=== PATIENT | female | born 1990 | race Caucasian/White ===

== ENCOUNTER 2016-08-26 16:58 | Emergency (ER) | payer OTHER ==
[2016-08-26 17:20] VITALS: BP 129/74; PULSE 88; RESP 20; TEMP 98.8
--- NOTE | 2016-08-26 17:41 | ED ---
General Adult HPI - General Chief complaint: Fever Stated complaint: Jaw Pain Time Seen by Provider: 08/26/16 17:22 Source: patient, RN notes reviewed, old records reviewed Mode of arrival: ambulatory Limitations: no limitations - History of Present Illness Initial comments: This is a 25-year-old female here with right molar pain. Right lower molar pain. Tooth was extracted secondary to positioning, patient has history of similar issues, patient was currently on treatment of outpatient pain control and antibiotics. Patient will have all medications, will be given pain medication until next week to follow-up with her primary care - Related Data Home Medications Medication Instructions Recorded Confirmed Multivitamin/Iron/Folic Acid 1 tab PO DAILY 02/25/16 08/26/16 [Centrum Complete Multivit Tab] Ibuprofen [Motrin] 800 mg PO Q8HR PRN 08/26/16 08/26/16 Previous Rx's Medication Instructions Recorded Diazepam [Valium] 5 mg PO HS #14 tab 08/26/16 HYDROcodone/APAP 5-325MG [[place] 1 tab PO Q6HR PRN #30 tab 08/26/16 5-325] Naproxen [Naprosyn] 500 mg PO Q12HR #30 tab 08/26/16 Penicillin V Potassium [Pen Vee K] 500 mg PO QID #40 tab 08/26/16 Allergies Allergy/AdvReac Type Severity Reaction Status Date / Time codeine Allergy IRRITABILIT Verified 08/26/16 17:33 Y prochlorperazine edisylate Allergy IRRITABILIT Verified 08/26/16 17:33 [From Compazine] Y prochlorperazine maleate Allergy IRRITABILIT Verified 08/26/16 17:33 [From Compazine] Y tramadol Allergy Unknown Verified 08/26/16 17:33 Review of Systems ROS Statement: Those systems with pertinent positive or pertinent negative responses have been documented in the HPI. ROS Other: All systems not noted in ROS Statement are negative. Past Medical History Additional Past Medical History / Comment(s): 1 seizure in the past History of Any Multi-Drug Resistant Organisms: None Reported Past Surgical History: Appendectomy Past Psychological History: Anxiety Smoking Status: Current some day smoker Past Alcohol Use History: Rare Past Drug Use History: Marijuana, Prescription Drug Abuse General Exam - General Exam Comments Initial Comments: Right rear molar she has extraction, no abscess Limitations: no limitations General appearance: alert, in no apparent distress Head exam: Present: atraumatic, normocephalic, normal inspection Eye exam: Present: normal appearance, PERRL, EOMI. Absent: scleral icterus, conjunctival injection, periorbital swelling ENT exam: Present: normal exam, mucous membranes moist Neck exam: Present: normal inspection. Absent: tenderness, meningismus, lymphadenopathy Respiratory exam: Present: normal lung sounds bilaterally. Absent: respiratory distress, wheezes, rales, rhonchi, stridor Cardiovascular Exam: Present: regular rate, normal rhythm, normal heart sounds. Absent: systolic murmur, diastolic murmur, rubs, gallop, clicks GI/Abdominal exam: Present: soft, normal bowel sounds. Absent: distended, tenderness, guarding, rebound, rigid Extremities exam: Present: normal inspection, full ROM, normal capillary refill. Absent: tenderness, pedal edema, joint swelling, calf tenderness Back exam: Present: normal inspection Neurological exam: Present: alert, oriented X3, CN II-XII intact Psychiatric exam: Present: normal affect, normal mood Skin exam: Present: warm, dry, intact, normal color. Absent: rash Course Vital Signs 08/26/16 17:17 Temperature 98.8 F Pulse Rate 88 Respiratory 20 Rate Blood Pressure 129/74 O2 Sat by Pulse 100 Oximetry Medical Decision Making - Medical Decision Making 25 female year for evaluation of dental caries recent dental extraction and dental pain. Patient will be given pain medication and antibiotics to follow- up with her dentist next week. - Radiology Data Radiology results: image reviewed Disposition Clinical Impression: Dental abscess Disposition: HOME SELF-CARE Instructions: Dental Abscess (ED) Prescriptions: Diazepam [Valium] 5 mg PO HS #14 tab HYDROcodone/APAP 5-325MG [[place] 5-325] 1 tab PO Q6HR PRN #30 tab PRN Reason: Pain Naproxen [Naprosyn] 500 mg PO Q12HR #30 tab Penicillin V Potassium [Pen Vee K] 500 mg PO QID #40 tab Referrals: Vannessa Echavarria MD [Primary Care Provider] - 1-2 days
== END 2016-08-26 17:56 | disposition home or self-care (01) ==
LOC: EC 16:58
DX: K04.7 Periapical abscess without sinus (principal); K02.9 Dental caries, unspecified; K08.409 Partial loss of teeth, unspecified cause, unspecified class; F41.9 Anxiety disorder, unspecified; F17.200 Nicotine dependence, unspecified, uncomplicated; Z88.5 Allergy status to narcotic agent; Z88.8 Allergy status to other drugs, medicaments and biological substances; Z79.899 Other long term (current) drug therapy
CPT/HCPCS: 99283

== ENCOUNTER 2017-07-06 17:32 | Emergency (ER) | payer OTHER ==
[2017-07-06 17:46] VITALS: BP 140/82; PULSE 94; RESP 18; TEMP 98.7
--- NOTE | 2017-07-06 18:20 | XR ---
EXAMINATION TYPE: XR ankle complete LT DATE OF EXAM: 07/06/2017 COMPARISON: NONE HISTORY: Pain TECHNIQUE: 3 views FINDINGS: Ankle mortise is anatomic. I see no fracture nor dislocation. Joint spaces are normal. IMPRESSION: Negative left ankle exam.
--- NOTE | 2017-07-06 18:23 | XR ---
EXAMINATION TYPE: XR hand complete RT DATE OF EXAM: 07/06/2017 COMPARISON: NONE HISTORY: Pain TECHNIQUE: 3 views FINDINGS: I see no fracture nor dislocation. Metacarpals are intact. There are no erosions. There is deformity of distal radius probably from an old injury. IMPRESSION: No acute abnormality of the right hand.
--- NOTE | 2017-07-06 18:45 | ED ---
General Adult HPI - General Chief complaint: Extremity Injury, Upper Stated complaint: Fell on ice/Hand injury Time Seen by Provider: 07/06/17 18:43 Source: patient, RN notes reviewed Mode of arrival: ambulatory Limitations: no limitations - History of Present Illness Initial comments: This is a 26-year-old female who presents to emergency department with chief complaint of left ankle and right hand injuries. Patient states that 2 weeks ago she slipped on a patch of ice and twisted her left ankle. Since that time her ankle has had swelling at the lateral aspect and pain that radiates up the leg. Patient states that at approximately 3 PM this afternoon she slipped on another patch of ice, tried to catch herself and hit the back of her right hand on a side rail. She states that she is normally able to handle pain well, but her hand is in extreme pain. Denies any other injuries. Denies fever, chills, chest pain, shortness of breath, abdominal pain, nausea or vomiting, constipation or diarrhea, dysuria or hematuria, numbness or tingling, headache or vision changes. - Related Data Home Medications Medication Instructions Recorded Confirmed Multivitamin/Iron/Folic Acid 1 tab PO DAILY 02/25/16 08/26/16 [Centrum Complete Multivit Tab] Ibuprofen [Motrin] 800 mg PO Q8HR PRN 08/26/16 08/26/16 Previous Rx's Medication Instructions Recorded Diazepam [Valium] 5 mg PO HS #14 tab 08/26/16 HYDROcodone/APAP 5-325MG [[place] 1 tab PO Q6HR PRN #30 tab 08/26/16 5-325] Naproxen [Naprosyn] 500 mg PO Q12HR #30 tab 08/26/16 Penicillin V Potassium [Pen Vee K] 500 mg PO QID #40 tab 08/26/16 Allergies Allergy/AdvReac Type Severity Reaction Status Date / Time codeine Allergy IRRITABILIT Verified 07/06/17 17:46 Y prochlorperazine edisylate Allergy IRRITABILIT Verified 07/06/17 17:46 [From Compazine] Y prochlorperazine maleate Allergy IRRITABILIT Verified 07/06/17 17:46 [From Compazine] Y tramadol Allergy Unknown Verified 07/06/17 17:46 Review of Systems ROS Statement: Those systems with pertinent positive or pertinent negative responses have been documented in the HPI. ROS Other: All systems not noted in ROS Statement are negative. Past Medical History Additional Past Medical History / Comment(s): 2 seizure in the past History of Any Multi-Drug Resistant Organisms: None Reported Past Surgical History: Appendectomy Past Psychological History: Anxiety Smoking Status: Current some day smoker Past Alcohol Use History: Rare Past Drug Use History: None Reported General Exam - General Exam Comments Initial Comments: General: Awake and alert, well-developed; in no apparent distress. HEENT: Head atraumatic, normocephalic. Pupils are equal, round and reactive to light. Extraocular movements intact. Neck: Supple. Normal ROM. Cardiovascular: Regular rate and rhythm. No murmurs, rubs or gallops. Chest symmetrical. Respiratory: Lungs clear to auscultation bilaterally. No wheezes, rales or rhonchi. Normal respiratory effort with no use of accessory muscles. Musculoskeletal: Normal range of motion of bilateral upper and lower extremities. There is some soft tissue swelling and bruising noted at lateral aspect of left ankle. There is soft tissue swelling and bruising surrounding the second and third MCP joints of right hand. Sensation is intact. Pedal and radial pulses are 2+ equal and palpable bilaterally. Skin: [place], warm and dry without rashes or lesions. Neurological: Alert and oriented x3. CN II-XII grossly intact. Speech is fluent and answers are appropriate. No focal neuro deficits. Psychiatric: Normal mood and affect. No overt signs of depression or anxiety noted. Limitations: no limitations Course Vital Signs 07/06/17 17:42 Temperature 98.7 F Pulse Rate 94 Respiratory 18 Rate Blood Pressure 140/82 O2 Sat by Pulse 99 Oximetry Medical Decision Making - Medical Decision Making This is a 26-year-old female who presented to the emergency department for evaluation of right hand and left ankle injuries. X-rays revealed no acute fractures or dislocations. Patient is able to bear weight and ambulating normally. Denies snuffbox tenderness. Scotty bandages were placed and patient tolerated well. She will be discharged home with recommendation to use ice and anti-inflammatories as needed. Patient is recommended to follow-up with her primary care provider. She is in agreement with plan and voices understanding. All questions were answered. - Radiology Data Radiology results: report reviewed Right hand x-ray findings: His no fracture or dislocation. Metacarpals are intact. There are no erosions. There is deformity of distal radius probably from an old injury. Impression: No acute abnormalities of the right hand. Left ankle x-ray findings: Ankle mortise is anatomic. I see no fracture nor dislocation. Joint spaces are normal. Impression: Negative left ankle exam Disposition Clinical Impression: Contusion of right hand, Left ankle sprain Disposition: HOME SELF-CARE Condition: Good Instructions: Contusion in Adults (ED), Ankle Sprain (ED) Additional Instructions: Please ice affected areas. Please use Tylenol or Motrin as needed for pain and inflammation. Please follow up with primary care provider within 1-2 days. Return to emergency department if symptoms should worsen or any concerns arise. Referrals: Vannessa Echavarria MD [Primary Care Provider] - 1-2 days Time of Disposition: 19:10
== END 2017-07-06 19:19 | disposition home or self-care (01) ==
LOC: EC 17:32
DX: S93.402A Sprain of unspecified ligament of left ankle, initial encounter (principal); S60.221A Contusion of right hand, initial encounter; F17.200 Nicotine dependence, unspecified, uncomplicated; Z79.899 Other long term (current) drug therapy; Z88.5 Allergy status to narcotic agent; Z88.8 Allergy status to other drugs, medicaments and biological substances; W00.0XXA Fall on same level due to ice and snow, initial encounter; Y92.89 Other specified places as the place of occurrence of the external cause
CPT/HCPCS: 99283

== ENCOUNTER 2017-12-30 19:27 | Emergency (ER) | payer OTHER ==
[2017-12-30 19:39] VITALS: BP 126/76; PULSE 89; RESP 18; TEMP 98.1
[2017-12-30] MEDS ORDERED: HYDROcodone/APAP 5-325MG 1 EACH TAB PO STA (19:54)
[2017-12-30] MEDS ORDERED: CYCLOBENZAPRINE 10MG STARTER 3 TAB BTL PO STA (19:54)
--- NOTE | 2017-12-30 19:58 | ED ---
Back Pain HPI - General Chief Complaint: Back Pain/Injury Stated Complaint: Back pain Time Seen by Provider: 12/30/17 19:46 Source: patient, RN notes reviewed Limitations: no limitations - History of Present Illness Initial Comments: 27-year-old female presents emergency Department chief complaint of low back pain. Patient states she injured it while lifting a box of the carotids help. She states [place] and after doing that she started having a sudden onset of pain. She states it hurts to twist and bend. She denies any bowel, bladder incontinence or retention. She denies any saddle anesthesias or lower extremity paresthesias. She does have some pain that radiates to her left leg. Patient states that she's had something like this in the past and she went to the chiropractor which helped. Patient denies abdominal pain including nausea vomiting diarrhea constipation or dysuria no hematuria denies any chance . - Related Data Home Medications Medication Instructions Recorded Confirmed Multivitamin/Iron/Folic Acid 1 tab PO DAILY 02/25/16 08/26/16 [Centrum Complete Multivit Tab] Ibuprofen [Motrin] 800 mg PO Q8HR PRN 08/26/16 08/26/16 Previous Rx's Medication Instructions Recorded Diazepam [Valium] 5 mg PO HS #14 tab 08/26/16 HYDROcodone/APAP 5-325MG [[place] 1 tab PO Q6HR PRN #30 tab 08/26/16 5-325] Naproxen [Naprosyn] 500 mg PO Q12HR #30 tab 08/26/16 Penicillin V Potassium [Pen Vee K] 500 mg PO QID #40 tab 08/26/16 Cyclobenzaprine [Flexeril] 10 mg PO TID PRN #15 tab 12/30/17 Allergies Allergy/AdvReac Type Severity Reaction Status Date / Time codeine Allergy IRRITABILIT Verified 12/30/17 19:39 Y prochlorperazine edisylate Allergy IRRITABILIT Verified 12/30/17 19:39 [From Compazine] Y prochlorperazine maleate Allergy IRRITABILIT Verified 12/30/17 19:39 [From Compazine] Y tramadol Allergy Unknown Verified 12/30/17 19:39 Review of Systems ROS Statement: Those systems with pertinent positive or pertinent negative responses have been documented in the HPI. ROS Other: All systems not noted in ROS Statement are negative. Past Medical History Past Medical History: Seizure Disorder Additional Past Medical History / Comment(s): 2 seizure in the past History of Any Multi-Drug Resistant Organisms: None Reported Past Surgical History: Appendectomy Past Psychological History: Anxiety Smoking Status: Current some day smoker Past Alcohol Use History: Rare Past Drug Use History: None Reported General Exam Limitations: no limitations General appearance: alert, in no apparent distress Respiratory exam: Present: normal lung sounds bilaterally. Absent: respiratory distress, wheezes, rales, rhonchi, stridor Cardiovascular Exam: Present: regular rate, normal rhythm, normal heart sounds. Absent: systolic murmur, diastolic murmur, rubs, gallop, clicks GI/Abdominal exam: Present: soft, normal bowel sounds. Absent: distended, tenderness, guarding, rebound, rigid Extremities exam: Present: normal inspection, full ROM, normal capillary refill. Absent: tenderness, pedal edema, joint swelling, calf tenderness Back exam: Present: normal inspection, full ROM (With moderate discomfort), tenderness (Mild to moderate lumbar), muscle spasm, paraspinal tenderness, other (Pain with right straight leg raise). Absent: vertebral tenderness Neurological exam: Present: alert, oriented X3, CN II-XII intact Course Vital Signs 12/30/17 19:36 Temperature 98.1 F Pulse Rate 89 Respiratory 18 Rate Blood Pressure 126/76 O2 Sat by Pulse 96 Oximetry Medical Decision Making - Medical Decision Making 27-year-old female presented emergency from for low back pain. Patient is a lumbar strain she has no red flag symptoms and no dramatic injuries. Patient will be provided muscle relaxers she is advised to apply heat and ice and continue ibuprofen as directed. Disposition Clinical Impression: Strain of lumbar region Disposition: HOME SELF-CARE Condition: Stable Instructions: Acute Low Back Pain (ED) Additional Instructions: Please return to the Emergency Department if symptoms worsen or any other concerns. Prescriptions: Cyclobenzaprine [Flexeril] 10 mg PO TID PRN #15 tab PRN Reason: Muscle Spasm Is patient prescribed a controlled substance at d/c from ED?: No Referrals: Vannessa Echavarria MD [Primary Care Provider] - 1-2 days Time of Disposition: 19:58
== END 2017-12-30 20:05 | disposition home or self-care (01) ==
LOC: EC 19:27
DX: S39.012A Strain of muscle, fascia and tendon of lower back, initial encounter (principal); F17.200 Nicotine dependence, unspecified, uncomplicated; Z88.5 Allergy status to narcotic agent; Z88.8 Allergy status to other drugs, medicaments and biological substances; Z88.6 Allergy status to analgesic agent; X50.0XXA Overexertion from strenuous movement or load, initial encounter
CPT/HCPCS: 99283

== ENCOUNTER 2018-01-18 23:32 | Inpatient (IN) | payer OTHER ==
[2018-01-19] MEDS ORDERED: SODIUM CHLORIDE 0.9% 1,000 ML IV ONE (01:52)
[2018-01-19] MEDS ORDERED: KETOROLAC 30 MG/ML 1 ML VIAL IVP STA (01:52)
[2018-01-19 02:18] LABS: Basophils # (A) 0.1 k/uL (0-0.2); Basophils % (A) 0 %; Eosinophils # (A) 0.4 k/uL (0-0.7); Eosinophils % (A) 3 %; HCT 42.1 % (34.0-46.0); HGB 13.6 gm/dL (11.4-16.0); Lymphocytes # (A) 1.8 k/uL (1.0-4.8); Lymphocytes % (A) 16 %; MCH 31.3 pg (25.0-35.0); MCHC 32.3 g/dL (31.0-37.0); MCV 96.9 fL (80.0-100.0); Mean Platelet Volume 8.1; Monocytes # (A) 0.7 k/uL (0-1.0); Monocytes % (A) 6 %; Neutrophils # (A) 8.1 k/uL (1.3-7.7); Neutrophils % (A) 72 %; Platelet Count 294 k/uL (150-450); RBC 4.35 m/uL (3.80-5.40); WBC 11.2 k/uL (3.8-10.6)
[2018-01-19 02:22] LABS: ALT 22 U/L (9-52); AST 17 U/L (14-36); Albumin 4.4 g/dL (3.5-5.0); Alkaline Phosphatase 69 U/L (38-126); Anion Gap 9 mmol/L; Blood Urea Nitrogen 17 mg/dL (7-17); Calcium 9.1 mg/dL (8.4-10.2); Carbon Dioxide 24 mmol/L (22-30); Chloride 107 mmol/L (98-107); Glucose 113 mg/dL (74-99); Potassium 4.1 mmol/L (3.5-5.1); Sodium 140 mmol/L (137-145); Total Bilirubin 0.4 mg/dL (0.2-1.3)
[2018-01-19] MEDS ORDERED: ACETAMINOPHEN TAB 325 MG TAB PO PRN (02:42)
[2018-01-19] MEDS ORDERED: IBUPROFEN 400 MG TAB PO PRN (02:42)
[2018-01-19] MEDS ORDERED: NALOXONE 0.4 MG/ML 1 ML VIAL IV PRN (02:42)
--- NOTE | 2018-01-19 02:42 | ED ---
Skin/Abscess/FB HPI - General Chief complaint: Skin/Abscess/Foreign Body Stated complaint: Cat Bite x3 days, pain, confusion, discharge Time Seen by Provider: 01/19/18 01:00 Source: patient Mode of arrival: ambulatory Limitations: no limitations - History of Present Illness Initial comments: 27-year-old female patient presents to the emergency department today for evaluation of infection to the right hand. Patient states 3 days ago she was bit by a cat on her right middle and right fourth digit. Patient states that she was seen and evaluated at urgent care and given Augmentin. Patient states she has been taking the medication for the last 2 days however the pain in her fingers is worsening and she is to feel some tingling at the distal tips of the third and fourth digits on the right hand. Patient states she is now having pain radiating from the hand up to her elbow into her shoulder. Patient states she has had fever for 100.8F at home. States that she has taken Advil for this and it did help with her chills. Patient states that she is also just felt very fatigued and "out of it". Patient denies any recent rash, shortness breath, chest pain, abdominal pain, nausea, vomiting, diarrhea, constipation, back pain, numbness, tingling, dizziness, weakness, hematuria, dysuria, urinary urgency, urinary frequency, headache, visual changes, or any other complaints. - Related Data Home Medications Medication Instructions Recorded Confirmed Multivitamin/Iron/Folic Acid 1 tab PO DAILY 02/25/16 08/26/16 [Centrum Complete Multivit Tab] Ibuprofen [Motrin] 800 mg PO Q8HR PRN 08/26/16 08/26/16 Previous Rx's Medication Instructions Recorded Diazepam [Valium] 5 mg PO HS #14 tab 08/26/16 HYDROcodone/APAP 5-325MG [[place] 1 tab PO Q6HR PRN #30 tab 08/26/16 5-325] Naproxen [Naprosyn] 500 mg PO Q12HR #30 tab 08/26/16 Penicillin V Potassium [Pen Vee K] 500 mg PO QID #40 tab 08/26/16 Cyclobenzaprine [Flexeril] 10 mg PO TID PRN #15 tab 12/30/17 Allergies Allergy/AdvReac Type Severity Reaction Status Date / Time codeine Allergy IRRITABILIT Verified 12/30/17 19:39 Y prochlorperazine edisylate Allergy IRRITABILIT Verified 12/30/17 19:39 [From Compazine] Y prochlorperazine maleate Allergy IRRITABILIT Verified 12/30/17 19:39 [From Compazine] Y tramadol Allergy Unknown Verified 12/30/17 19:39 Review of Systems ROS Statement: Those systems with pertinent positive or pertinent negative responses have been documented in the HPI. ROS Other: All systems not noted in ROS Statement are negative. Past Medical History Past Medical History: Seizure Disorder Additional Past Medical History / Comment(s): 2 seizure in the past History of Any Multi-Drug Resistant Organisms: None Reported Past Surgical History: Appendectomy Past Psychological History: Anxiety Smoking Status: Current some day smoker Past Alcohol Use History: Rare Past Drug Use History: Marijuana General Exam Limitations: no limitations General appearance: alert, in no apparent distress, other (This is a well- developed, well-nourished adult female patient in no acute distress. Vital signs upon presentation are temperature 98.3F, pulse 105, respirations 18, blood pressure 136/86, pulse ox 99% on room air.) Eye exam: Present: normal appearance, PERRL, EOMI. Absent: scleral icterus, conjunctival injection, periorbital swelling ENT exam: Present: normal exam, normal oropharynx, mucous membranes moist Respiratory exam: Present: normal lung sounds bilaterally. Absent: respiratory distress, wheezes, rales, rhonchi, stridor Cardiovascular Exam: Present: regular rate, normal rhythm, normal heart sounds. Absent: systolic murmur, diastolic murmur, rubs, gallop, clicks Extremities exam: Present: full ROM, tenderness (Over the right third and fourth digit on the right hand.), normal capillary refill, other (Patient has swelling to the proximal aspects of the right middle and right ring finger. There is some erythema streaking from the right ring finger up the dorsal aspect of the hand. Radial pulses 2+ and equal bilaterally. [place] skin is pink, warm, and dry. Cap refills less than 3 seconds.). Absent: normal inspection, pedal edema, joint swelling, calf tenderness Neurological exam: Present: alert, oriented X3, CN II-XII intact Psychiatric exam: Present: normal affect, normal mood Skin exam: Present: warm, dry, intact, normal color. Absent: rash Course Vital Signs 01/18/18 23:35 Temperature 98.3 F Pulse Rate 105 H Respiratory 18 Rate Blood Pressure 136/86 O2 Sat by Pulse 99 Oximetry Medical Decision Making - Medical Decision Making 27-year-old female patient presented to the emergency department today for evaluation of a cat bite to the right hand. Patient was taking Augmentin for 2 days however has increased swelling and pain to the right hand radiating up the arm. Labs reviewed and did show white blood cell count of 11.2. Lactic acid was negative. Patient did report fevers at home. Patient will be admitted to the hospital for further evaluation with surgical consult. She'll be given Unasyn 4 times daily. She is aware of and agrees with plan. - Lab Data Result diagrams: 01/19/18 02:00 01/19/18 02:00 Lab Results 01/19/18 01/19/18 01/19/18 Range/Units 02:00 02:00 02:00 WBC 11.2 H (3.8-10.6) k/uL RBC 4.35 (3.80-5.40) m/uL Hgb 13.6 (11.4-16.0) gm/dL Hct 42.1 (34.0-46.0) % MCV 96.9 (80.0-100.0) fL MCH 31.3 (25.0-35.0) pg MCHC 32.3 (31.0-37.0) g/dL RDW 13.0 (11.5-15.5) % Plt Count 294 (150-450) k/uL Neutrophils % 72 % Lymphocytes % 16 % Monocytes % 6 % Eosinophils % 3 % Basophils % 0 % Neutrophils # 8.1 H (1.3-7.7) k/uL Lymphocytes # 1.8 (1.0-4.8) k/uL Monocytes # 0.7 (0-1.0) k/uL Eosinophils # 0.4 (0-0.7) k/uL Basophils # 0.1 (0-0.2) k/uL Sodium 140 (137-145) mmol/L Potassium 4.1 (3.5-5.1) mmol/L Chloride 107 (98-107) mmol/L Carbon Dioxide 24 (22-30) mmol/L Anion Gap 9 mmol/L BUN 17 (7-17) mg/dL Creatinine 0.70 (0.52-1.04) mg/dL Est GFR (CKD-EPI)AfAm >90 (>60 ml/min/1.73 sqM) Est GFR (CKD-EPI)NonAf >90 (>60 ml/min/1.73 sqM) Glucose 113 H (74-99) mg/dL Plasma Lactic Acid Ike 0.9 (0.7-2.0) mmol/L Calcium 9.1 (8.4-10.2) mg/dL Total Bilirubin 0.4 (0.2-1.3) mg/dL AST 17 (14-36) U/L ALT 22 (9-52) U/L Alkaline Phosphatase 69 (38-126) U/L Total Protein 7.0 (6.3-8.2) g/dL Albumin 4.4 (3.5-5.0) g/dL Disposition Clinical Impression: Cat bite involving extremity, Lymphangitis Disposition: ADMITTED IP TO THIS [facility] Condition: Serious Referrals: Vannessa Echavarria MD [Primary Care Provider] - 1-2 days Decision to Admit Reason: Admit from EC Decision Date: 01/19/18 Decision Time: 02:41
[2018-01-19] MEDS ORDERED: AMPICILLIN-SULBACTAM 3 GM in SODIUM CHLORIDE 0.9% 100 ML IVPB STA (02:44)
[2018-01-19] MEDS: SODIUM CHLORIDE 0.9% 1,000 ML IV SCH (03:08)
[2018-01-19] MEDS: AMPICILLIN-SULBACTAM 3 GM in SODIUM CHLORIDE 0.9% 100 ML IVPB SCH ×3 (08:10→21:02)
--- NOTE | 2018-01-19 10:35 | P.CONS ---
History of Present Illness - Reason for Consult Consult date: 01/19/18 Antibiotic recommendations/ cat bite - History of Present Illness This is a 27-year-old female but gives history of her own cat biting her on the right third and fourth fingers. She states she went to her primary care physician who then sent her to the health department. The health Department then sent her to [facility] ER where her wound was cleaned, she received a tetanus shot and patient was started on Augmentin. Patient was then traveling with her down to [place] and back and has had continued fever, chills, nausea. She complains of numbness to her third and fourth fingers from the proximal phalanx to the tips. The pain has been worsening for her. She came into [facility] emergency last evening and was found to be afebrile, white count is 11.2, glucose 113. Patient denies any history of diabetes. Patient was started on Unasyn and admitted to the pediatric unit. There is a consult in place for orthopedic evaluation. Patient states that she was told by the ER last night that she had some streaks going up her hand and into her arm. Review of Systems All systems: negative Constitutional: Reports chills, Reports fever, Denies anorexia, Denies poor appetite Eyes: denies blurred vision, denies pain Ears, nose, mouth and throat: Denies dental pain, Denies headache, Denies mouth pain, Denies sore throat Cardiovascular: Reports lightheadedness, Denies chest pain, Denies dyspnea on exertion, Denies leg edema, Denies shortness of breath, Denies syncope Respiratory: Reports cough, Denies cough with sputum, Denies dyspnea, Denies excessive sputum, Denies hemoptysis, Denies home oxygen, Denies wheezing Gastrointestinal: Denies abdominal pain, Denies diarrhea, Denies nausea, Denies vomiting Genitourinary: Denies dysuria, Denies hematuria Musculoskeletal: Denies myalgias Integumentary: Reports wounds, Denies pruritus, Denies rash Neurological: Denies numbness, Denies weakness Psychiatric: Denies anxiety, Denies depression Endocrine: Denies fatigue, Denies weight change Past Medical History Past Medical History: Seizure Disorder Additional Past Medical History / Comment(s): Patient has been seizure free for 3 years. History of Any Multi-Drug Resistant Organisms: None Reported Past Surgical History: Appendectomy Past Anesthesia/Blood Transfusion Reactions: No Reported Reaction Past Psychological History: Anxiety Smoking Status: Current some day smoker Past Alcohol Use History: Rare Additional Past Alcohol Use History / Comment(s): is a smoker of less than a half a pack per day for 12 years. She does smoke marijuana occasionally. She drinks alcohol rarely. She lives at home with her fianc and children. Past Drug Use History: Marijuana Additional Drug Use History / Comment(s): Smokes marijuana occasionally. - Past Family History Brother(s) Additional Family Medical History / Comment(s): Cystic fibrosis Medications and Allergies Home Medications Medication Instructions Recorded Confirmed Type Multivitamin/Iron/Folic Acid 1 tab PO DAILY 02/25/16 01/19/18 History [Centrum Complete Multivit Tab] Ibuprofen [Motrin] 800 mg PO Q8HR PRN 08/26/16 01/19/18 History Amoxic-Pot Clav 500-125 mg 500 tab PO QID 01/19/18 01/19/18 History [Augmentin 500-125 mg] Allergies Allergy/AdvReac Type Severity Reaction Status Date / Time codeine Allergy Rash/Hives Verified 01/19/18 04:26 tramadol AdvReac Severe Unknown Verified 01/19/18 04:26 prochlorperazine edisylate AdvReac Intermediate IRRITABILIT Verified 01/19/18 04 :26 [From Compazine] Y prochlorperazine maleate AdvReac Intermediate IRRITABILIT Verified 01/19/18 04: 26 [From Compazine] Y Physical Exam Vitals: Vital Signs Temp Pulse Pulse Resp BP BP Pulse Ox 01/19/18 08:12 97.5 F L 71 18 104/57 99 01/19/18 04:01 97.6 F 69 18 112/73 99 01/19/18 04:00 97.7 F 68 18 108/68 100 01/18/18 23:35 98.3 F 105 H 18 136/86 99 Intake and Output 01/18/18 01/19/18 01/19/18 22:59 06:59 14:59 Intake Total 580 Balance 580 Intake: Oral 580 Other: Weight 54.885 kg Gen: This is a 27-year-old female. She is sitting up in bed and eating in [place] which appears to be in no acute distress. HEENT: Head is atraumatic, normocephalic. Pupils equal, round. Sclerae is anicteric. Conjunctiva pink. Mucous members of the mouth are moist. NECK: Supple. No JVD. No lymphadenopathy. No thyromegaly. LUNGS: Clear to auscultation. No wheezes or rhonchi. No intercostal retractions. HEART: Regular rate and rhythm. No murmur. ABDOMEN: Soft. Bowel sounds are present. No masses. No tenderness. EXTREMITIES: No pedal edema. No calf tenderness. To the right hand, patient has puncture wounds to the third proximal phalanx and fourth proximal phalanx. There is mild edema and erythema. No redness or going up into the arm. Patient does complain of tingling from the proximal phalanx to her fingertips on the third and fourth digits. NEUROLOGICAL: Patient is awake, alert and oriented x3. Cranial nerves 2 through 12 are grossly intact. Results Results: Laboratory Results WBC 11.2 k/uL (3.8-10.6) H 01/19/18 02:00 RBC 4.35 m/uL (3.80-5.40) 01/19/18 02:00 Hgb 13.6 gm/dL (11.4-16.0) 01/19/18 02:00 Hct 42.1 % (34.0-46.0) 01/19/18 02:00 MCV 96.9 fL (80.0-100.0) 01/19/18 02:00 MCH 31.3 pg (25.0-35.0) 01/19/18 02:00 MCHC 32.3 g/dL (31.0-37.0) 01/19/18 02:00 RDW 13.0 % (11.5-15.5) 01/19/18 02:00 Plt Count 294 k/uL (150-450) 01/19/18 02:00 Neutrophils % 72 % 01/19/18 02:00 Lymphocytes % 16 % 01/19/18 02:00 Monocytes % 6 % 01/19/18 02:00 Eosinophils % 3 % 01/19/18 02:00 Basophils % 0 % 01/19/18 02:00 Neutrophils # 8.1 k/uL (1.3-7.7) H 01/19/18 02:00 Lymphocytes # 1.8 k/uL (1.0-4.8) 01/19/18 02:00 Monocytes # 0.7 k/uL (0-1.0) 01/19/18 02:00 Eosinophils # 0.4 k/uL (0-0.7) 01/19/18 02:00 Basophils # 0.1 k/uL (0-0.2) 01/19/18 02:00 Sodium 140 mmol/L (137-145) 01/19/18 02:00 Potassium 4.1 mmol/L (3.5-5.1) 01/19/18 02:00 Chloride 107 mmol/L (98-107) 01/19/18 02:00 Carbon Dioxide 24 mmol/L (22-30) 01/19/18 02:00 Anion Gap 9 mmol/L 01/19/18 02:00 BUN 17 mg/dL (7-17) 01/19/18 02:00 Creatinine 0.70 mg/dL (0.52-1.04) 01/19/18 02:00 Est GFR (CKD-EPI)AfAm >90 (>60 ml/min/1.73 sqM) 01/19/18 02:00 Est GFR (CKD-EPI)NonAf >90 (>60 ml/min/1.73 sqM) 01/19/18 02:00 Glucose 113 mg/dL (74-99) H 01/19/18 02:00 Plasma Lactic Acid Ike 0.9 mmol/L (0.7-2.0) 01/19/18 02:00 Calcium 9.1 mg/dL (8.4-10.2) 01/19/18 02:00 Total Bilirubin 0.4 mg/dL (0.2-1.3) 01/19/18 02:00 AST 17 U/L (14-36) 01/19/18 02:00 ALT 22 U/L (9-52) 01/19/18 02:00 Alkaline Phosphatase 69 U/L (38-126) 01/19/18 02:00 Total Protein 7.0 g/dL (6.3-8.2) 01/19/18 02:00 Albumin 4.4 g/dL (3.5-5.0) 01/19/18 02:00 CBC & Chem 7: 01/19/18 02:00 01/19/18 02:00 Labs: Abnormal Lab Results - Last 24 Hours (Table) 01/19/18 01/19/18 Range/Units 02:00 02:00 WBC 11.2 H (3.8-10.6) k/uL Neutrophils # 8.1 H (1.3-7.7) k/uL Glucose 113 H (74-99) mg/dL Assessment and Plan Plan: This is a 27-year-old female who presented to the hospital with Bite failed outpatient treatment with Augmentin. Patient is currently on Unasyn. Local wound care will be addressed, elevate and on 2 pillows. Bone scan will be ordered. Toradol IV [id number] for the next 2 days. Patient's tetanus status was updated on the . Hemoglobin A1c ordered. Continue supportive care. Further recommendations as patient progresses. The above dictated assessment and findings were discussed with Dr. Sandoval. The impression and plan of care have been directed as dictated. Millicent Diaz nurse practitioner acting as scribe for Dr. Sandoval.
--- NOTE | 2018-01-19 11:24 | P.CNOR ---
History of Present Illness - [facility] Consult date: 01/19/18 Consult reason: other (Cat bite right hand) History of present illness: The patient is a 27-year-old female who presented to the emergency department after sustaining a cat bite 3 days ago. The patient states that it was her own cat and her daughter was trying to introduce th cat to a dog and the cat was frightened, it bit her and ran away. She was initially seen at her primary care physician who sent her to the health department. The health department then sent her to the ER at [facility] where the wound was clean and she received Augmentin and a tetanus shot. The patient states that she then traveled down to [place] with her family and while driving back she developed a fever and chills. She came immediately to the emergency department at [facility] upon arrival back into [facility]. She states that the ER said that she had some red streaking up her arm. She was afebrile while in the emergency department. She was started on Unasyn and admitted to the pediatric unit for IV antibiotics and orthopedic evaluation. Today, the patient states that she has not had a fever since admission. She states that her hand is feeling better but she is having pain and numbness to her middle and ring fingers on the right hand. Review of Systems Constitutional: Reports chills, Reports fever Cardiovascular: Denies chest pain, Denies shortness of breath Respiratory: Denies cough Gastrointestinal: Denies diarrhea, Denies nausea, Denies vomiting Musculoskeletal: right: hand pain, hand stiffness, hand swelling Past Medical History Past Medical History: Seizure Disorder Additional Past Medical History / Comment(s): Patient has been seizure free for 3 years. History of Any Multi-Drug Resistant Organisms: None Reported Past Surgical History: Appendectomy Past Anesthesia/Blood Transfusion Reactions: No Reported Reaction Past Psychological History: Anxiety Smoking Status: Current some day smoker Past Alcohol Use History: Rare Additional Past Alcohol Use History / Comment(s): is a smoker of less than a half a pack per day for 12 years. She does smoke marijuana occasionally. She drinks alcohol rarely. She lives at home with her fianc and children. Past Drug Use History: Marijuana Additional Drug Use History / Comment(s): Smokes marijuana occasionally. - Past Family History Brother(s) Additional Family Medical History / Comment(s): Cystic fibrosis Medications and Allergies Home Medications Medication Instructions Recorded Confirmed Type Multivitamin/Iron/Folic Acid 1 tab PO DAILY 02/25/16 01/19/18 History [Centrum Complete Multivit Tab] Ibuprofen [Motrin] 800 mg PO Q8HR PRN 08/26/16 01/19/18 History Amoxic-Pot Clav 500-125 mg 500 tab PO QID 01/19/18 01/19/18 History [Augmentin 500-125 mg] Allergies Allergy/AdvReac Type Severity Reaction Status Date / Time codeine Allergy Rash/Hives Verified 01/19/18 04:26 tramadol AdvReac Severe Unknown Verified 01/19/18 04:26 prochlorperazine edisylate AdvReac Intermediate IRRITABILIT Verified 01/19/18 04 :26 [From Compazine] Y prochlorperazine maleate AdvReac Intermediate IRRITABILIT Verified 01/19/18 04: 26 [From Compazine] Y Physical Examination The patient is a 27-year-old female who is in no acute distress. She is alert and oriented 3. Exam of the right hand reveals 2 puncture wounds on the ulnar aspects of the proximal phalanx level of the right middle and ring fingers. The puncture sites appear to be healing with no evidence of abscess or obvious infection at this time. The redness has seemed to improve since admission. There is no proximal red streaking or swelling into the hand. There is mild swelling to the ring and middle fingers. Patient is unable to make a fist due to pain and guarding. There is numbness to the fingertips of the right middle and ring fingers with some tingling. Neurological and circulatory status is intact to the hand. Results - Labs Labs: Abnormal Lab Results - Last 24 Hours (Table) 01/19/18 01/19/18 Range/Units 02:00 02:00 WBC 11.2 H (3.8-10.6) k/uL Neutrophils # 8.1 H (1.3-7.7) k/uL Glucose 113 H (74-99) mg/dL H & H 01/19/18 Range/Units 02:00 Hgb 13.6 (11.4-16.0) gm/dL Hct 42.1 (34.0-46.0) % Result Diagrams: 01/19/18 02:00 01/19/18 02:00 - Diagnostic results Wrist/Hand x-ray: other (No x-rays available from [facility] Assessment and Plan (1) Cellulitis of right hand Current Visit: Yes Status: Acute Code(s): L03.113 - CELLULITIS OF RIGHT UPPER LIMB SNOMED Code(s): 82624615 (2) Cat bite involving extremity Current Visit: Yes Status: Acute Code(s): PIQ3037 - SNOMED Code(s): 200728029 Plan: The clinical findings were discussed with the patient. The case was also discussed with Dr. Ozuna. The patient appears to be improving on IV antibiotics. No surgical intervention is planned at this time. We will consult infectious disease for further recommendations on discharge antibiotics since she did fail treatment with Augmentin. The patient was encouraged to elevate her right hand. She was also encouraged to continue gentle finger range of motion. We will await infectious disease consultation and make further recommendations as needed.
--- NOTE | 2018-01-19 12:45 | P.HPIM ---
History of Present Illness 27-year-old female but gives history of her own cat biting her on the right third and fourth fingers. She states she went to her primary care physician who then sent her to the health department. The health Department then sent her to [facility] ER where her wound was cleaned, she received a tetanus shot and patient was started on Augmentin. Patient started having fever and sputum Augmentin because of which she came to ER here She complains of numbness to her third and fourth fingers from the proximal phalanx to the tips. The pain has been worsening for her. She came into [facility] emergency last evening and was found to be afebrile, white count is 11.2, glucose 113. started on Unasyn and was admitted. Patient the has significant swelling of the middle finger on the right side because of which there is a concern of tendinitis because of which orthopedic surgery was consulted and arthritic surgery consulted infectious disease and patient is undergoing a bone scan. Patient pain is well-controlled with the Toradol which will be continued. Review of Systems IREVIEW OF SYSTEMS: CONSTITUTIONAL: no malaise, no fatigue. HEENT: No recent visual problems or hearing problems. Denied any sore throat. CARDIOVASCULAR: No chest pain, orthopnea, PND, no palpitations, no syncope. PULMONARY: No shortness of breath, no cough, no hemoptysis. GASTROINTESTINAL: No diarrhea, no nausea, no vomiting, no abdominal pain. Normoactive bowel sounds. NEUROLOGICAL: No headaches, no weakness, no numbness. HEMATOLOGICAL: Denies any bleeding or petechiae. GENITOURINARY: Denies any burning micturition, frequency, or urgency. MUSCULOSKELETAL/RHEUMATOLOGICAL: As mentioned in HPI ENDOCRINE: Denies any polyuria or polydipsia. The rest of the 14-point review of systems is negative. Past Medical History Past Medical History: Seizure Disorder Additional Past Medical History / Comment(s): Patient has been seizure free for 3 years. History of Any Multi-Drug Resistant Organisms: None Reported Past Surgical History: Appendectomy Past Anesthesia/Blood Transfusion Reactions: No Reported Reaction Past Psychological History: Anxiety Smoking Status: Current some day smoker Past Alcohol Use History: Rare Additional Past Alcohol Use History / Comment(s): Mauricio is a smoker of less than a half a pack per day for 12 years. She does smoke marijuana occasionally. She drinks alcohol rarely. She lives at home with her fianc and children. Past Drug Use History: Marijuana Additional Drug Use History / Comment(s): Smokes marijuana occasionally. - Past Family History Brother(s) Additional Family Medical History / Comment(s): Cystic fibrosis Medications and Allergies Home Medications Medication Instructions Recorded Confirmed Type Multivitamin/Iron/Folic Acid 1 tab PO DAILY 02/25/16 01/19/18 History [Centrum Complete Multivit Tab] Ibuprofen [Motrin] 800 mg PO Q8HR PRN 08/26/16 01/19/18 History Amoxic-Pot Clav 500-125 mg 500 tab PO QID 01/19/18 01/19/18 History [Augmentin 500-125 mg] Allergies Allergy/AdvReac Type Severity Reaction Status Date / Time codeine Allergy Rash/Hives Verified 01/19/18 04:26 tramadol AdvReac Severe Unknown Verified 01/19/18 04:26 prochlorperazine edisylate AdvReac Intermediate IRRITABILIT Verified 01/19/18 04 :26 [From Compazine] Y prochlorperazine maleate AdvReac Intermediate IRRITABILIT Verified 01/19/18 04: 26 [From Compazine] Y Physical Exam Vitals: Vital Signs Temp Pulse Pulse Resp BP BP Pulse Ox 01/19/18 08:12 97.5 F L 71 18 104/57 99 01/19/18 04:01 97.6 F 69 18 112/73 99 01/19/18 04:00 97.7 F 68 18 108/68 100 01/18/18 23:35 98.3 F 105 H 18 136/86 99 Intake and Output 01/18/18 01/19/18 01/19/18 22:59 06:59 14:59 Intake Total 580 Balance 580 Intake: Oral 580 Other: Weight 54.885 kg PHYSICAL EXAMINATION: GENERAL: The patient is alert and oriented x3, not in any acute distress. Well developed, well nourished. HEENT: Pupils are round and equally reacting to light. EOMI. No scleral icterus. No conjunctival pallor. Normocephalic, atraumatic. No pharyngeal erythema. No thyromegaly. CARDIOVASCULAR: S1 and S2 present. No murmurs, rubs, or gallops. PULMONARY: Chest is clear to auscultation, no wheezing or crackles. ABDOMEN: Soft, nontender, nondistended, normoactive bowel sounds. No palpable organomegaly. MUSCULOSKELETAL: No joint swelling or deformity. EXTREMITIES: No cyanosis, clubbing, or pedal edema. Patient has swelling of the right hand significant swelling of the right third proximal phalanx with a bite rip fourth proximal phalanx has by tomorrow bite rip as well which is not swollen as much as the third one NEUROLOGICAL: Gross neurological examination did not reveal any focal deficits. SKIN: No rashes. Results CBC & Chem 7: 01/19/18 02:00 01/19/18 02:00 Labs: Abnormal Lab Results - Last 24 Hours (Table) 01/19/18 01/19/18 Range/Units 02:00 02:00 WBC 11.2 H (3.8-10.6) k/uL Neutrophils # 8.1 H (1.3-7.7) k/uL Glucose 113 H (74-99) mg/dL Thrombosis Risk Factor Assmnt - Choose All That Apply Any of the Below Risk Factors Present?: No Other Risk Factors: No Other congenital or acquired thrombophilia - If yes, enter type in comment: No Thrombosis Risk Factor Assessment Level: Very Low Risk Assessment and Plan Plan: -Sepsis: Secondary to cat bite cellulitis and possibility of tendinitis: Patient will be continued on Augmentin if patient can use to improve probably can be discharged tomorrow bone scan as mentioned above. -Pain management: We will continue with Toradol along with GI prophylaxis. -Seizure disorder: Presently not on any antiseizure medications -Nicotine abuse: Counseling was provided.
[2018-01-19] MEDS: KETOROLAC 30 MG/ML 1 ML VIAL IVP SCH ×3 (12:51→23:09)
[2018-01-19] MEDS: FAMOTIDINE 20 MG TAB PO SCH ×2 (12:52→21:02)
[2018-01-19] MEDS: MULTIVITAMINS, THERA 1 EACH TAB PO SCH (12:52)
--- NOTE | 2018-01-19 13:44 | P.CON ---
Consult Note - . Consult date: 01/19/18 Assessment/Plan:: This is a 27-year-old female but gives history of her own cat biting her on the right third and fourth fingers. She states she went to her primary care physician who then sent her to the health department. The health Department then sent her to [facility] ER where her wound was cleaned, she received a tetanus shot and patient was started on Augmentin. Patient was then traveling with her down to [place] and back and has had continued fever, chills, nausea. She complains of numbness to her third and fourth fingers from the proximal phalanx to the tips. The pain has been worsening for her. She came into [facility] emergency last evening and was found to be afebrile, white count is 11.2, glucose 113. Patient denies any history of diabetes. Patient was started on Unasyn and admitted to the pediatric unit. There is a consult in place for orthopedic evaluation. Patient states that she was told by the ER last night that she had some streaks going up her hand and into her arm. Please see the consult note is dictated by nurse practitioner this is Millicent Diaz. Pleasant 27-year-old woman without significant past medical history does relate that she was bit by her own pet cat that is up-to-date on its vaccines including rabies. The cat was startled when it was approached by a dog that it does not know. It bit the orders hand before and jumped down and ran away. The patient did go to a local clinic and the site was cleansed she then went to health department looking for a tetanus vaccine and actually ended up in an outside hospital. There is she did receive her tetanus vaccine and oral antibiotic therapy with Augmentin. With the following day the hand is become painful a bit more swollen she has difficulty making a fist and because it was not improving presented to our emergency center for further evaluation. She was admitted with failure of outpatient antibiotic therapy. It is time she does have the inability to make a complete fist and does have evidence of some tenderness on the right hand third finger on the dorsum of the proximal phalanx. There is concern there could be a bit of a deeper infection we have asked for x-rays and the outside hospital. We'll obtain a bone scan to ensure there is no deeper infection. Hopefully within 24 hours with antibiotic therapy elevation and anti-inflammatories she'll have a marked improvement in need no further intervention. She has been seen by surgery. If she has any worsening the could then evaluate for any drainage of abscess related to the tendons if becomes evident. At this time she fortunately seems to be having some improvement and hopefully will not require any further intervention.. Please see the consult note as dictated by nurse practitioner Mrs. Millicent Diaz.
--- NOTE | 2018-01-19 16:24 | NM ---
EXAMINATION TYPE: NM bone 3 phase DATE OF EXAM: 01/19/2018 COMPARISON: 07/06/2017 radiographs HISTORY: Evaluate for right hand third digit osteomyelitis. Triple phase bone scintigraphy was performed following the injection of 22.7 mCi Tc 99m MDP. Immedia te images and 4 hours post injection images acquired. FINDINGS: There is symmetric flow to the hands with slight increased blood pool to the proximal phalanx of the third digit, however there is no persistent uptake on delayed imaging to suggest osteomyelitis. No ot her abnormal radiotracer accumulation is seen throughout the hands. IMPRESSION: Scintigraphic findings do not suggest osteomyelitis of the right hand.
[2018-01-19 17:33] LABS: Hemoglobin A1C 4.8 % (4.0-6.0)
[2018-01-19 22:59] VITALS: RESP 16
[2018-01-20] MEDS: AMPICILLIN-SULBACTAM 3 GM in SODIUM CHLORIDE 0.9% 100 ML IVPB SCH ×2 (03:29→09:00)
[2018-01-20] MEDS: SODIUM CHLORIDE 0.9% 1,000 ML IV SCH ×2 (05:49→08:59)
[2018-01-20] MEDS: KETOROLAC 30 MG/ML 1 ML VIAL IVP SCH ×2 (05:49→12:20)
[2018-01-20 05:58] VITALS: BP 109/73; PULSE 64; TEMP 97.8
--- NOTE | 2018-01-20 09:04 | P.PN ---
Subjective Progress Note Date: 01/20/18 The patient continues to have discomfort in her right hand, but seems to be improving. She denies fevers or chills. Objective - Vital Signs Vital signs: Vital Signs Temp 97.8 F 01/20/18 05:00 Pulse 64 01/20/18 05:00 Resp 16 01/20/18 05:00 BP 109/73 01/20/18 05:00 Pulse Ox 100 01/20/18 05:00 Intake & Output 01/19/18 01/20/18 01/20/18 18:59 06:59 18:59 Intake Total 590 Balance 590 Intake: Oral 590 Other: Voiding Method Toilet # Voids 3 2 - Exam A focused exam of the right hand was conducted. There are healing puncture wounds over the middle and ring finger. There is minimal erythema and no fluctuance. There is no tenderness along the flexor tendon sheaths and the patient is able to actively flex and extend her fingers. Motor and sensory function is intact. - Labs CBC & Chem 7: 01/19/18 02:00 01/19/18 02:00 Labs: Microbiology - Last 24 Hours (Table) 01/19/18 02:00 Blood Culture - Preliminary Blood No Growth after 24 hours Assessment and Plan Plan: The patient is improving on IV antibiotics and has no clinical signs of deep infection requiring surgical intervention at that is time. If she fails to improve on antibiotics or develops worsening clinical symptoms, I'd recommend getting an MRI with contrast to rule out a deep space infection in the hand or tendon sheath. We will continue to follow while she is in the hospital.
[2018-01-20] MEDS: FAMOTIDINE 20 MG TAB PO SCH (12:18)
--- NOTE | 2018-01-20 12:49 | P.DS ---
Providers Date of admission: 01/19/18 03:27 Attending physician: Lc Hatfield Consults: 01/19/18 02:42 Consult Physician Routine Consulting Provider: Alf Moser Consult Reason/Comments: Cat bite to hand Do you want consulting provider notified?: Yes 01/19/18 09:23 Consult Physician Routine Consulting Provider: Isai Sandoval Consult Reason/Comments: antibiotic recommendations/cat bite Do you want consulting provider notified?: Already Contacted Primary care physician: Jericho Garcia [facility] Course: 27-year-old female but gives history of her own cat biting her on the right third and fourth fingers. She states she went to her primary care physician who then sent her to the health department. The health Department then sent her to [facility] ER where her wound was cleaned, she received a tetanus shot and patient was started on Augmentin. Patient started having fever and sputum Augmentin because of which she came to ER here She complains of numbness to her third and fourth fingers from the proximal phalanx to the tips. The pain has been worsening for her. She came into [facility] emergency last evening and was found to be afebrile, white count is 11.2, glucose 113. started on Unasyn and was admitted. Patient the has significant swelling of the middle finger on the right side because of which there is a concern of tendinitis because of which orthopedic surgery was consulted and arthritic surgery consulted infectious disease and patient is undergoing a bone scan. Patient pain is well-controlled with the Toradol which will be continued 01/20/2018 Patient swelling pain improved in the right hand. Patient is cleared for discharge, the medical perspective patient still has 7 day worth of Augmentin left and patient was asked to take his medications patient will continue her Motrin for pain. Patient will be discharged today. PHYSICAL EXAMINATION: GENERAL: The patient is alert and oriented x3, not in any acute distress. Well developed, well nourished. HEENT: Pupils are round and equally reacting to light. EOMI. No scleral icterus. No conjunctival pallor. Normocephalic, atraumatic. No pharyngeal erythema. No thyromegaly. CARDIOVASCULAR: S1 and S2 present. No murmurs, rubs, or gallops. PULMONARY: Chest is clear to auscultation, no wheezing or crackles. ABDOMEN: Soft, nontender, nondistended, normoactive bowel sounds. No palpable organomegaly. MUSCULOSKELETAL: No joint swelling or deformity. EXTREMITIES: No cyanosis, clubbing, or pedal edema. Significantly improved swelling of the third proximal phalanx NEUROLOGICAL: Gross neurological examination did not reveal any focal deficits. SKIN: No rashes. Assessment and Plan Plan: -Right hand infection Secondary to cat bite cellulitis and possibility of tendinitis: Patient will be discharged on Augmentin as mentioned above, patient doesn't have sepsis at this time or on admission -Pain management: -Seizure disorder: Presently not on any antiseizure medications -Nicotine abuse: Counseling was provided. Patient Condition at Discharge: Serious Plan - Discharge Summary Discharge Rx Participant: No New Discharge Prescriptions: No Action Multivitamin/Iron/Folic Acid [Centrum Complete Multivit Tab] 1 tab PO DAILY Ibuprofen [Motrin] 800 mg PO Q8HR PRN PRN Reason: Pain Amoxic-Pot Clav 500-125 mg [Augmentin 500-125 mg] 500 tab PO QID Discharge Medication List Multivitamin/Iron/Folic Acid [Centrum Complete Multivit Tab] 1 tab PO DAILY 02/01 [History] Ibuprofen [Motrin] 800 mg PO Q8HR PRN 08/26/16 [History] Amoxic-Pot Clav 500-125 mg [Augmentin 500-125 mg] 500 tab PO QID 01/19/18 [ History] Follow up Appointment(s)/Referral(s): Vannessa Echavarria MD [Primary Care Provider] - 3 Days (Patient to call Dr. Echavarria's office Monday to schedule follow up appointment. The office is closed at time of discharge. ) Dax Ozuna MD [Medical Doctor] - 1 Week (Patient to call Dr. Ozuna's office Monday morning to schedule follow up appointment. The office is closed at time of discharge. ) Patient Instructions/Handouts: Animal Bite (DC), Cellulitis (DC), Lymphangitis (DC) Discharge Disposition: HOME SELF-CARE
[2018-01-20] MEDS: MULTIVITAMINS, THERA 1 EACH TAB PO SCH (14:54)
== END 2018-01-20 15:00 | disposition home or self-care (01) | DRG 603 ==
LOC: EC 23:32 → 6PED 01-19 03:27 → 5MS5E 01-19 17:56
PROVIDERS: ADMIT Hospitalist; ATTEND Hospitalist
DX: L03.113 Cellulitis of right upper limb (principal); F41.9 Anxiety disorder, unspecified; G40.909 Epilepsy, unspecified, not intractable, without status epilepticus; M77.9 Enthesopathy, unspecified; F17.210 Nicotine dependence, cigarettes, uncomplicated; S61.451A Open bite of right hand, initial encounter; Z79.899 Other long term (current) drug therapy; Z88.5 Allergy status to narcotic agent; Z88.8 Allergy status to other drugs, medicaments and biological substances; Z90.49 Acquired absence of other specified parts of digestive tract; Z71.6 Tobacco abuse counseling; Z84.81 Family history of carrier of genetic disease; W55.01XA Bitten by cat, initial encounter
CPT/HCPCS: 36415; 78315; 80053; 83036; 83605; 85025; 87040; 96361; 96365; 96375; 99284

== ENCOUNTER 2019-03-12 22:11 | Inpatient (IN) | payer MEDICAID, OTHER ==
[2019-03-12 22:18] VITALS: RESP 18
[2019-03-12 23:05] LABS: Amphetamine Screen,Urine Not Detected (NotDetected); Barbiturate Screen,Urine Not Detected (NotDetected); Benzodiazepines Screen,Urine Detected (NotDetected); Cocaine Screen,Urine Not Detected (NotDetected); Methadone Screen, Urine Not Detected (NotDetected); Opiate Screen,Urine Not Detected (NotDetected); Oxycodone Screen, Urine Not Detected (NotDetected); Phencyclidine Screen,Urine Not Detected (NotDetected); Tricyclic Antidepressant,Urine Not Detected (NotDetected); Urn Cannabinoid Scrn Not Detected (NotDetected)
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
[2019-03-13] MEDS ORDERED: MAGNESIUM HYDROXIDE 2,400 MG/10 ML CUP PO PRN (05:29)
[2019-03-13] MEDS ORDERED: MAG HYDROX/AL HYDROX/SIMETH 30 ML CUP PO PRN (05:29)
[2019-03-13] MEDS ORDERED: ACETAMINOPHEN TAB 325 MG TAB PO PRN (05:29)
[2019-03-13 05:44] LABS: Appearance,Urine Clear (Clear); Bilirubin,Urine Negative (Negative); Blood,Urine Negative (Negative); Color,Urine Colorless; Glucose,Urine (UA) Negative (Negative); Ketones,Urine Negative (Negative); Leukocyte Esterase,Urine Negative (Negative); Nitrite,Urine Negative (Negative); PH, Urine 6.5 (5.0-8.0); Protein,Urine Negative (Negative); Specific Gravity,Urine 1.004 (1.001-1.035); Urobilinogen,Urine <2.0 mg/dL (<2.0)
[2019-03-13] MEDS: NICOTINE 14MG/24HR PATCH TRANSDERM SCH (08:16)
[2019-03-13] MEDS ORDERED: LORazepam 1 MG TAB PO SCH (09:00)
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
[2019-03-13] MEDS: VORTIOXETINE HYDROBROMIDE 10 MG TABLET PO SCH (11:53)
--- NOTE | 2019-03-13 13:27 | P.CONS ---
History of Present Illness - Reason for Consult Medical clearance - History of Present Illness Patient is with the major depression is admitted for depression without psychosis. Patient is clinically doing well denied any fever chills nausea vomiting abdominal pain diarrhea Review of Systems REVIEW OF SYSTEMS: CONSTITUTIONAL: No fever, no malaise, no fatigue. HEENT: No recent visual problems or hearing problems. Denied any sore throat. CARDIOVASCULAR: No chest pain, orthopnea, PND, no palpitations, no syncope. PULMONARY: No shortness of breath, no cough, no hemoptysis. GASTROINTESTINAL: No diarrhea, no nausea, no vomiting, no abdominal pain. NEUROLOGICAL: No headaches, no weakness, no numbness. HEMATOLOGICAL: Denies any bleeding or petechiae. GENITOURINARY: Denies any burning micturition, frequency, or urgency. MUSCULOSKELETAL/RHEUMATOLOGICAL: Denies any joint pain, swelling, or any muscle pain. ENDOCRINE: Denies any polyuria or polydipsia. The rest of the 14-point review of systems is negative. Past Medical History Past Medical History: Seizure Disorder Additional Past Medical History / Comment(s): Patient has been seizure free for 3 years. History of Any Multi-Drug Resistant Organisms: None Reported Past Surgical History: Appendectomy Past Anesthesia/Blood Transfusion Reactions: No Reported Reaction Past Psychological History: Anxiety Smoking Status: Current some day smoker Past Alcohol Use History: Rare Past Drug Use History: Marijuana - Past Family History Brother(s) Additional Family Medical History / Comment(s): Cystic fibrosis Medications and Allergies Home Medications Medication Instructions Recorded Confirmed Type No Known Home Medications 03/12/19 03/13/19 History Allergies Allergy/AdvReac Type Severity Reaction Status Date / Time codeine Allergy Rash/Hives Verified 03/13/19 05:33 tramadol AdvReac Severe Unknown Verified 03/13/19 05:33 prochlorperazine edisylate AdvReac Intermediate IRRITABILIT Verified 03/13/19 05:33 [From Compazine] Y prochlorperazine maleate AdvReac Intermediate IRRITABILIT Verified 03/13/19 05:33 [From Compazine] Y Physical Exam Vitals: Vital Signs Temp Pulse Pulse Resp BP BP Pulse Ox 03/13/19 06:09 98.7 F 84 18 115/80 03/12/19 22:16 97.7 F 114 H 18 134/102 97 Intake and Output 03/12/19 03/13/19 03/13/19 22:59 06:59 14:59 Other: Weight 58.513 kg PHYSICAL EXAMINATION: GENERAL: The patient is alert and oriented x3, not in any acute distress. Well developed, well nourished. HEENT: Pupils are round and equally reacting to light. EOMI. No scleral icterus. No conjunctival pallor. Normocephalic, atraumatic. No pharyngeal erythema. No thyromegaly. CARDIOVASCULAR: S1 and S2 present. No murmurs, rubs, or gallops. PULMONARY: Chest is clear to auscultation, no wheezing or crackles. ABDOMEN: Soft, nontender, nondistended, normoactive bowel sounds. No palpable organomegaly. MUSCULOSKELETAL: No joint swelling or deformity. EXTREMITIES: No cyanosis, clubbing, or pedal edema. NEUROLOGICAL: Gross neurological examination did not reveal any focal deficits. SKIN: No rashes. Results Labs: Abnormal Lab Results - Last 24 Hours (Table) 03/12/19 Range/Units 22:53 U Benzodiazepines Scrn Detected H (NotDetected) Assessment and Plan Plan: -Major depression: Management as per primary service -Nicotine abuse: Counseling was provided -Tachycardia, sinus secondary to depression and anxiety expected to improve with the treatment of these medical problems, will obtain TSH No further recommendations from medicine will follow on as-needed basis
[2019-03-13] MEDS: LORazepam 1 MG TAB PO PRN (16:38)
[2019-03-13 17:14] VITALS: BMI 24.3
[2019-03-14] MEDS: VORTIOXETINE HYDROBROMIDE 10 MG TABLET PO SCH (08:57)
[2019-03-14] MEDS: NICOTINE 14MG/24HR PATCH TRANSDERM SCH (08:57)
[2019-03-14 09:17] LABS: ALT 17 U/L (9-52); AST 24 U/L (14-36); African American GFR (CKD) >90 (>60 ml/min/1.73 sqM); Albumin 4.1 g/dL (3.5-5.0); Alkaline Phosphatase 55 U/L (38-126); Anion Gap 6 mmol/L; Bilirubin, Delta 0.1 mg/dL (0.0-0.2); Bilirubin,Unconjugated 0.8 mg/dL (0.0-1.1); Blood Urea Nitrogen 11 mg/dL (7-17); Calcium 9.6 mg/dL (8.4-10.2); Carbon Dioxide 25 mmol/L (22-30); Chloride 109 mmol/L (98-107); Cholesterol 202 mg/dL (<200); Glucose 97 mg/dL (74-99); HDL Cholesterol 71 mg/dL (40-60); LDL Cholesterol,Calculated 110 mg/dL (0-99); Potassium 4.5 mmol/L (3.5-5.1); Sodium 140 mmol/L (137-145); Total Bilirubin 0.9 mg/dL (0.2-1.3); Total Protein 6.8 g/dL (6.3-8.2); Triglycerides 104 mg/dL (<150)
[2019-03-14 09:18] LABS: Basophils # (A) 0.1 k/uL (0-0.2); Basophils % (A) 2 %; Eosinophils # (A) 0.4 k/uL (0-0.7); Eosinophils % (A) 5 %; HCT 41.5 % (34.0-46.0); HGB 14.1 gm/dL (11.4-16.0); Lymphocytes # (A) 1.4 k/uL (1.0-4.8); Lymphocytes % (A) 17 %; MCV 97.2 fL (80.0-100.0); Mean Platelet Volume 8.5; Monocytes # (A) 0.5 k/uL (0-1.0); Monocytes % (A) 7 %; Neutrophils # (A) 5.4 k/uL (1.3-7.7); Neutrophils % (A) 68 %; Platelet Count 330 k/uL (150-450); RBC 4.27 m/uL (3.80-5.40); RDW 14.2 % (11.5-15.5); WBC 7.9 k/uL (3.8-10.6)
--- NOTE | 2019-03-14 09:50 | P.PN ---
Progress Note - Text Interval history: The patient is found in the hallway she follows me to an interview room. She reports her mood is improved. She indicates that she had a very pleasant meeting with her fianc last evening. They were able to discuss the precipitating factors causing this admission. He states that they agreed to no longer use alcohol the home. They agreed to how they would communicate and argue trying to protect their son from that behavior. We reviewed her psychotropic medication and her questions were answered. She indicates she is looking forward to working with an individual therapist. We discussed some principles of cognitive behavioral therapy and how it can be used to develop coping skills. Mental status exam: The patient is alert she seated calmly in the chair she is pleasant and cooperative. Eye contact is appropriate. Speech is fluent spontaneous nonpressured. She indicates her mood is much better. She is reporting no acute suicidal or homicidal ideation intent or plan. Thought process is linear she demonstrates no tangential thinking loose associations or flight of ideas. She is reporting no symptoms of psychosis there is no observed evidence of psychosis. Insight and judgment improving. She remains oriented to person place and date. Plan: The patient will continue on the Trintellix. We will monitor her for safety and encourage participation in the milieu. She appears to be clinically stabilizing. Social work will be asked to arrange a support meeting. The patient may be appropriate for discharge as soon as tomorrow depending on her clinical progress. Vital signs reviewed.
[2019-03-14] MEDS: LORazepam 1 MG TAB PO PRN ×2 (13:39→22:42)
[2019-03-14 19:44] LABS: Hemoglobin A1C 4.6 % (4.0-6.0)
[2019-03-15 06:55] VITALS: BP 108/63; PULSE 75; TEMP 99
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
[2019-03-15] MEDS: NICOTINE 14MG/24HR PATCH TRANSDERM SCH (09:53)
[2019-03-15] MEDS: VORTIOXETINE HYDROBROMIDE 10 MG TABLET PO SCH (09:53)
[2019-03-15] MEDS: LORazepam 1 MG TAB PO PRN (10:47)
== END 2019-03-15 11:20 | disposition home or self-care (01) | DRG 885 ==
LOC: EC 22:11 → 3MHU 03-13 05:16
PROVIDERS: ADMIT Psychiatry & Neurology Psychiatry; ATTEND Psychiatry & Neurology Psychiatry
DX: F33.2 Major depressive disorder, recurrent severe without psychotic features (principal); R45.851 Suicidal ideations; G40.909 Epilepsy, unspecified, not intractable, without status epilepticus; F17.200 Nicotine dependence, unspecified, uncomplicated; F41.1 Generalized anxiety disorder; F43.10 Post-traumatic stress disorder, unspecified; F12.90 Cannabis use, unspecified, uncomplicated; Z88.5 Allergy status to narcotic agent; Z88.8 Allergy status to other drugs, medicaments and biological substances; Z90.49 Acquired absence of other specified parts of digestive tract; Z81.8 Family history of other mental and behavioral disorders; Z84.89 Family history of other specified conditions
CPT/HCPCS: 80053; 80061; 80306; 81003; 81025; 82075; 82248; 83036; 84443; 85025; 99285

== ENCOUNTER 2019-05-05 11:44 | Emergency (ER) | payer OTHER ==
[2019-05-05 11:48] VITALS: TEMP 97.7
--- NOTE | 2019-05-05 13:00 | ED ---
Eye Problem HPI - General Chief complaint: Eye Problems Stated complaint: eye pain/headaches Time Seen by Provider: 05/05/19 12:03 Source: patient Mode of arrival: ambulatory Limitations: no limitations - History of Present Illness Initial comments: Patient is a 28-year-old female presenting to emergency Department with complaints of right arm a swelling and pain that started today. Patient states she is was also having clear discharge from the eye. Patient states last night when she went to bed she noticed her eye felt irritated over this morning the irritation has increased. Patient does not remember getting anything in her eye or scratching her eye. Patient states she is also having a mild headache from this. Patient denies any recent fever, chills, nausea, vomiting, blurry vision. Patient has no other complaints at this time. Upon arrival to ER, vital signs are stable. - Related Data Previous Rx's Medication Instructions Recorded Nicotine 14Mg/24Hr Patch [Habitrol] 1 patch TRANSDERM DAILY #14 patch 03/15/19 Vortioxetine Hydrobromide 10 mg PO DAILY #30 tablet 03/15/19 [Trintellix] Erythromycin Ophth Oint [Romycin 1 applic RIGHT EYE QID 5 Days #1 05/05/19 Ophth Oint] tube Allergies Allergy/AdvReac Type Severity Reaction Status Date / Time codeine Allergy Rash/Hives Verified 05/05/19 11:48 tramadol AdvReac Severe Unknown Verified 05/05/19 11:48 prochlorperazine edisylate AdvReac Intermediate IRRITABILIT Verified 05/05/19 11:48 [From Compazine] Y prochlorperazine maleate AdvReac Intermediate IRRITABILIT Verified 05/05/19 11:48 [From Compazine] Y Review of Systems ROS Statement: Those systems with pertinent positive or pertinent negative responses have been documented in the HPI. ROS Other: All systems not noted in ROS Statement are negative. Past Medical History Past Medical History: Seizure Disorder Additional Past Medical History / Comment(s): Patient has been seizure free for 3 years. History of Any Multi-Drug Resistant Organisms: None Reported Past Surgical History: Appendectomy Past Anesthesia/Blood Transfusion Reactions: No Reported Reaction Past Psychological History: Anxiety Smoking Status: Current some day smoker Past Alcohol Use History: Rare Past Drug Use History: Marijuana - Past Family History Brother(s) Additional Family Medical History / Comment(s): Cystic fibrosis General Exam - General Exam Comments Initial Comments: GENERAL: Well-appearing, well-nourished and in no acute distress. HEAD: Atraumatic, normocephalic. EYES: Pupils equal round and reactive to light, extraocular movements intact, sclera anicteric, conjunctiva are normal. Patient has a very mild surrounding erythema of the right thigh as well as clear discharge. Patient has a abrasion to the lateral aspect of the right eyes approximately the 3 o'clock position seen with fluorescein stain. ENT: TMs normal, nares patent, oropharynx clear without exudates. Moist mucous membranes. NECK: Normal range of motion, supple without lymphadenopathy or JVD. LUNGS: Breath sounds clear to auscultation bilaterally and equal. No wheezes rales or rhonchi. HEART: Regular rate and rhythm without murmurs, rubs or gallops. EXTREMITIES: Normal range of motion, no pitting or edema. No clubbing or cyanosis. NEUROLOGICAL: Cranial nerves II through XII grossly intact. Normal speech, normal gait. PSYCH: Normal mood, normal affect. SKIN: Warm, Dry, normal turgor, no rashes or lesions noted. Limitations: no limitations Course Vital Signs 05/05/19 05/05/19 11:46 13:10 Temperature 97.7 F Pulse Rate 118 H 96 Respiratory 16 18 Rate Blood Pressure 136/82 123/95 O2 Sat by Pulse 99 98 Oximetry Medical Decision Making - Medical Decision Making Patient is a 28-year-old female presenting with right eye irritation since this morning. On exam with forced stain stain patient has an abrasion to the lateral aspect of the right thigh, the 3 o'clock position. Patient did receive a few drops of proparacaine drops and will be given a prescription for antibiotic ointment. 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 Patient will take Tylenol or Motrin for her headache. Patient is agreement with this plan of care. Patient is stable for discharge at this time. Return parameters were discussed with the patient she verbalized understanding. Case discussed with Dr. Omalley. Disposition Clinical Impression: Right corneal abrasion Disposition: HOME SELF-CARE Condition: Stable Instructions (If sedation given, give patient instructions): Corneal Abrasion (ED) Additional Instructions: Please return to the Emergency Department if symptoms worsen or any other concerns. Use antibiotic ointment as prescribed. Follow-up with ophthalmology as discussed, then PCP. Prescriptions: Erythromycin Ophth Oint [Romycin Ophth Oint] 1 applic RIGHT EYE QID 5 Days #1 tube Is patient prescribed a controlled substance at d/c from ED?: No Referrals: Vannessa Echavarria MD [Primary Care Provider] - 1-2 days
[2019-05-05 13:12] VITALS: BP 123/95; PULSE 96; RESP 18
== END 2019-05-05 13:15 | disposition home or self-care (01) ==
LOC: EC 11:44
DX: S05.01XA Injury of conjunctiva and corneal abrasion without foreign body, right eye, initial encounter (principal); F17.200 Nicotine dependence, unspecified, uncomplicated; Z88.5 Allergy status to narcotic agent; Z88.8 Allergy status to other drugs, medicaments and biological substances; X58.XXXA Exposure to other specified factors, initial encounter
CPT/HCPCS: 99283

== ENCOUNTER 2019-08-31 11:40 | Inpatient (IN) | payer MEDICAID, OTHER ==
[2019-08-31] MEDS ORDERED: PANTOPRAZOLE 40 MG/10 ML VIAL IVP STA (11:44)
[2019-08-31] MEDS ORDERED: ACTIVATED CHARCOAL-SORBITOL 50 GM/240 ML BOTTLE PO STA (11:46)
--- NOTE | 2019-08-31 12:06 | ED ---
General Adult HPI - General Chief complaint: Psychiatric Symptoms Stated complaint: Overdose Time Seen by Provider: 08/31/19 11:45 Source: patient, EMS, RN notes reviewed, old records reviewed Mode of arrival: EMS Limitations: no limitations - History of Present Illness Initial comments: This is a 28-year-old female presents emergency Department after having taking about 30 200 mg Motrin tablets and 25 of her antidepressant medications called trintellix. Patient states she took approximately 35-40 minutes ago. Patient states she's been depressed and didn't want to deal with it also is an attempted suicide. Patient denies any symptoms having taken the pills so far. Patient denies headache patient denies numbness weakness. Patient has chest pain difficulty breathing first breath per patient denies any recent fever chills or cough per patient denies abdominal pain patient denies nausea vomiting diarrhea. - Related Data Home Medications Medication Instructions Recorded Confirmed ALPRAZolam [Xanax] 1 mg PO DAILY PRN 08/31/19 08/31/19 HYDROcodone/APAP 5-325MG [[place] 0.5 - 1 tab PO DAILY PRN 08/31/19 08/31/19 5-325] Ibuprofen [Motrin Ib] 200 - 800 mg PO Q8H PRN 08/31/19 08/31/19 Vortioxetine Hydrobromide 20 mg PO DAILY 08/31/19 08/31/19 [Trintellix] Allergies Allergy/AdvReac Type Severity Reaction Status Date / Time codeine Allergy Rash/Hives Verified 08/31/19 12:46 tramadol AdvReac Severe Unknown Verified 08/31/19 12:46 prochlorperazine edisylate AdvReac Intermediate IRRITABILIT Verified 08/31/19 12:46 [From Compazine] Y prochlorperazine maleate AdvReac Intermediate IRRITABILIT Verified 08/31/19 12:46 [From Compazine] Y Review of Systems ROS Statement: Those systems with pertinent positive or pertinent negative responses have been documented in the HPI. ROS Other: All systems not noted in ROS Statement are negative. Past Medical History Past Medical History: Seizure Disorder Additional Past Medical History / Comment(s): Patient has been seizure free for 3 years. History of Any Multi-Drug Resistant Organisms: None Reported Past Surgical History: Appendectomy Past Anesthesia/Blood Transfusion Reactions: No Reported Reaction Past Psychological History: Anxiety, Depression, PTSD Smoking Status: Current some day smoker Past Alcohol Use History: Rare Past Drug Use History: Marijuana - Past Family History Brother(s) Additional Family Medical History / Comment(s): Cystic fibrosis General Exam - General Exam Comments Initial Comments: GENERAL: Patient is well-developed and well-nourished. Patient is nontoxic and well- hydrated and is in no acute distress. ENT: Neck is soft and supple. No significant lymphadenopathy is noted. Oropharynx is clear. Moist mucous membranes. Neck has full range of motion without eliciting any pain. EYES: The sclera were anicteric and conjunctiva were pink and moist. Extraocular movements were intact and pupils were equal round and reactive to light. Eyelids were unremarkable. PULMONARY: Unlabored respirations. Good breath sounds bilaterally. No audible rales rhonchi or wheezing was noted. CARDIOVASCULAR: There is a regular rate and rhythm without any murmurs gallops or rubs. ABDOMEN: Soft and nontender with normal bowel sounds. SKIN: Skin is clear with no lesions or rashes and otherwise unremarkable. NEUROLOGIC: Patient is alert and oriented x3. Cranial nerves II through XII are grossly intact. Motor and sensory are also intact. Normal speech, volume and content. Symmetrical smile. MUSCULOSKELETAL: Normal extremities with adequate strength and full range of motion. LYMPHATICS: No significant lymphadenopathy is noted PSYCHIATRIC: Patient states she suicidal and she made an attempt to kill herself by taking the medication indicated in the history Limitations: no limitations Course Vital Signs 08/31/19 08/31/19 08/31/19 11:47 11:55 12:55 Temperature 98.4 F Pulse Rate 90 90 85 Respiratory 20 20 20 Rate Blood Pressure 122/92 122/92 125/87 O2 Sat by Pulse 98 98 98 Oximetry 08/31/19 08/31/19 08/31/19 13:00 14:00 15:00 Temperature Pulse Rate Respiratory 18 Rate Blood Pressure O2 Sat by Pulse 98 98 98 Oximetry Medical Decision Making - Medical Decision Making Patient was immediately gastric lavaged with quite a bit of pills and pill fragments coming out. Patient was then given Protonix as well as charcoal with sorbitol EKG shows normal sinus rhythm at 89 bpm [place] interval 240 QRS is 88 QT interval 356 QTC is 433. Patient's EKG shows no ST segment elevation or depression or T wave abnormalities are noted. - Lab Data Result diagrams: 08/31/19 12:11 08/31/19 12:11 Lab Results 08/31/19 08/31/19 08/31/19 Range/Units 12:11 12:11 12:11 WBC 8.5 (3.8-10.6) k/uL RBC 4.65 (3.80-5.40) m/uL Hgb 14.6 (11.4-16.0) gm/dL Hct 45.1 (34.0-46.0) % MCV 97.1 (80.0-100.0) fL MCH 31.5 (25.0-35.0) pg MCHC 32.4 (31.0-37.0) g/dL RDW 13.2 (11.5-15.5) % Plt Count 353 (150-450) k/uL Neutrophils % 73 % Lymphocytes % 17 % Monocytes % 6 % Eosinophils % 3 % Basophils % 1 % Neutrophils # 6.2 (1.3-7.7) k/uL Lymphocytes # 1.4 (1.0-4.8) k/uL Monocytes # 0.5 (0-1.0) k/uL Eosinophils # 0.2 (0-0.7) k/uL Basophils # 0.1 (0-0.2) k/uL PT 10.4 (9.0-12.0) sec INR 1.0 (<1.2) APTT 25.3 (22.0-30.0) sec Sodium 142 (137-145) mmol/L Potassium 4.9 (3.5-5.1) mmol/L Chloride 111 H (98-107) mmol/L Carbon Dioxide 23 (22-30) mmol/L Anion Gap 8 mmol/L BUN 13 (7-17) mg/dL Creatinine 0.65 (0.52-1.04) mg/dL Est GFR (CKD-EPI)AfAm >90 (>60 ml/min/1.73 sqM) Est GFR (CKD-EPI)NonAf >90 (>60 ml/min/1.73 sqM) Glucose 94 (74-99) mg/dL Calcium 9.1 (8.4-10.2) mg/dL Total Bilirubin 0.6 (0.2-1.3) mg/dL AST 39 H (14-36) U/L ALT 16 (4-34) U/L Alkaline Phosphatase 91 (38-126) U/L Total Protein 8.0 (6.3-8.2) g/dL Albumin 4.8 (3.5-5.0) g/dL Salicylates <1.0 mg/dL Acetaminophen <10.0 ug/mL Serum Alcohol 86 mg/dL Disposition Clinical Impression: Suicidal ideation, Overdose Disposition: ADMITTED IP TO THIS HOSP Referrals: Vannessa Echavarria MD [Primary Care Provider] - 1-2 days Time of Disposition: 15:28
[2019-08-31] MEDS ORDERED: ACETAMINOPHEN TAB 500 MG TAB PO STA (12:07)
[2019-08-31 12:26] LABS: Basophils # (A) 0.1 k/uL (0-0.2); Basophils % (A) 1 %; Eosinophils # (A) 0.2 k/uL (0-0.7); Eosinophils % (A) 3 %; HCT 45.1 % (34.0-46.0); HGB 14.6 gm/dL (11.4-16.0); Lymphocytes # (A) 1.4 k/uL (1.0-4.8); Lymphocytes % (A) 17 %; MCH 31.5 pg (25.0-35.0); MCHC 32.4 g/dL (31.0-37.0); MCV 97.1 fL (80.0-100.0); Mean Platelet Volume 8.3; Monocytes # (A) 0.5 k/uL (0-1.0); Monocytes % (A) 6 %; Neutrophils # (A) 6.2 k/uL (1.3-7.7); Neutrophils % (A) 73 %; Platelet Count 353 k/uL (150-450); RBC 4.65 m/uL (3.80-5.40); RDW 13.2 % (11.5-15.5); WBC 8.5 k/uL (3.8-10.6)
[2019-08-31 12:40] LABS: ALT 16 U/L (4-34); AST 39 U/L (14-36); Acetaminophen <10.0 ug/mL; African American GFR (CKD) >90 (>60 ml/min/1.73 sqM); Albumin 4.8 g/dL (3.5-5.0); Alkaline Phosphatase 91 U/L (38-126); Anion Gap 8 mmol/L; Blood Urea Nitrogen 13 mg/dL (7-17); Calcium 9.1 mg/dL (8.4-10.2); Carbon Dioxide 23 mmol/L (22-30); Chloride 111 mmol/L (98-107); Glucose 94 mg/dL (74-99); Non-African American GFR(CKD) >90 (>60 ml/min/1.73 sqM); Potassium 4.9 mmol/L (3.5-5.1); Salicylate <1.0 mg/dL; Sodium 142 mmol/L (137-145); Total Bilirubin 0.6 mg/dL (0.2-1.3)
[2019-08-31 13:05] LABS: Alcohol 86 mg/dL
[2019-08-31 13:44] LABS: Partial Thromboplastin Time 25.3 sec (22.0-30.0); Prothrombin Time 10.4 sec (9.0-12.0)
[2019-08-31] MEDS ORDERED: ONDANSETRON 4 MG/2 ML VIAL IVP STA (13:51)
[2019-08-31] MEDS ORDERED: SODIUM CHLORIDE 0.9% 1,000 ML IV ONE (13:55)
[2019-08-31] MEDS ORDERED: MAG HYDROX/AL HYDROX/SIMETH 30 ML CUP PO PRN (15:58)
[2019-08-31] MEDS ORDERED: ZIPRASIDONE 20 MG VIAL IM PRN (15:58)
[2019-08-31] MEDS ORDERED: MAGNESIUM HYDROXIDE 2,400 MG/10 ML CUP PO PRN (15:58)
[2019-08-31] MEDS ORDERED: ACETAMINOPHEN TAB 325 MG TAB PO PRN (15:58)
[2019-08-31] MEDS ORDERED: ALPRAZolam 1 MG TAB PO PRN (16:02)
[2019-08-31 16:33] LABS: ALT 15 U/L (4-34); AST 36 U/L (14-36)
[2019-08-31 16:36] LABS: Partial Thromboplastin Time 25.8 sec (22.0-30.0); Prothrombin Time 10.8 sec (9.0-12.0)
[2019-08-31 18:11] LABS: INR 1.1 (<1.2); Prothrombin Time 11.2 sec (9.0-12.0)
[2019-08-31 18:26] LABS: ALT 16 U/L (4-34); AST 35 U/L (14-36); African American GFR (CKD) >90 (>60 ml/min/1.73 sqM); Albumin 4.8 g/dL (3.5-5.0); Alkaline Phosphatase 88 U/L (38-126); Anion Gap 5 mmol/L; Blood Urea Nitrogen 12 mg/dL (7-17); Calcium 9.1 mg/dL (8.4-10.2); Carbon Dioxide 28 mmol/L (22-30); Chloride 108 mmol/L (98-107); Glucose 106 mg/dL (74-99); Non-African American GFR(CKD) >90 (>60 ml/min/1.73 sqM); Sodium 141 mmol/L (137-145); Total Bilirubin 0.6 mg/dL (0.2-1.3); Total Protein 7.7 g/dL (6.3-8.2)
[2019-08-31 18:33] LABS: Potassium 4.3 mmol/L (3.5-5.1)
[2019-09-01 07:41] LABS: ALT 14 U/L (4-34); AST 30 U/L (14-36); African American GFR (CKD) >90 (>60 ml/min/1.73 sqM); Albumin 3.9 g/dL (3.5-5.0); Alkaline Phosphatase 74 U/L (38-126); Anion Gap 5 mmol/L; Blood Urea Nitrogen 10 mg/dL (7-17); Calcium 9.1 mg/dL (8.4-10.2); Carbon Dioxide 27 mmol/L (22-30); Chloride 107 mmol/L (98-107); Cholesterol 191 mg/dL (<200); Glucose 98 mg/dL (74-99); HDL Cholesterol 70 mg/dL (40-60); LDL Cholesterol,Calculated 101 mg/dL (0-99); Non-African American GFR(CKD) >90 (>60 ml/min/1.73 sqM); Potassium 3.9 mmol/L (3.5-5.1); Sodium 139 mmol/L (137-145); Total Bilirubin 0.9 mg/dL (0.2-1.3); Total Protein 6.7 g/dL (6.3-8.2); Triglycerides 102 mg/dL (<150)
[2019-09-01 07:49] LABS: Basophils % (A) 0 %; Eosinophils # (A) 0.2 k/uL (0-0.7); Eosinophils % (A) 3 %; HCT 40.7 % (34.0-46.0); HGB 13.2 gm/dL (11.4-16.0); Lymphocytes # (A) 1.8 k/uL (1.0-4.8); Lymphocytes % (A) 21 %; MCH 31.8 pg (25.0-35.0); MCHC 32.5 g/dL (31.0-37.0); MCV 97.8 fL (80.0-100.0); Mean Platelet Volume 8.2; Monocytes # (A) 0.5 k/uL (0-1.0); Monocytes % (A) 6 %; Neutrophils # (A) 5.8 k/uL (1.3-7.7); Neutrophils % (A) 68 %; Platelet Count 270 k/uL (150-450); RBC 4.16 m/uL (3.80-5.40); WBC 8.6 k/uL (3.8-10.6)
[2019-09-01] MEDS ORDERED: VORTIOXETINE HYDROBROMIDE 20 MG TABLET PO SCH (09:00)
[2019-09-01 09:32] LABS: Amorphous Sediment,Urine Occasional /hpf; Appearance,Urine Cloudy (Clear); Bacteria,Urine Rare /hpf; Bilirubin,Urine Negative (Negative); Blood,Urine Trace (Negative); Color,Urine Yellow; Glucose,Urine (UA) Negative (Negative); Ketones,Urine Negative (Negative); Leukocyte Esterase,Urine Small (Negative); Mucus,Urine Occasional /hpf; Nitrite,Urine Negative (Negative); PH, Urine 6.5 (5.0-8.0); Protein,Urine 1+ (Negative); RBC,Urine 2 /hpf (0-5); Squamous Epithelial Cell,Urine 17 /hpf (0-4); WBC,Urine 5 /hpf (0-5)
[2019-09-01] MEDS: NICOTINE 14MG/24HR PATCH TRANSDERM SCH (09:39)
[2019-09-01 09:44] LABS: Amphetamine Screen,Urine Not Detected (NotDetected); Barbiturate Screen,Urine Not Detected (NotDetected); Benzodiazepines Screen,Urine Detected (NotDetected); Cocaine Screen,Urine Not Detected (NotDetected); Methadone Screen, Urine Not Detected (NotDetected); Opiate Screen,Urine Detected (NotDetected); Oxycodone Screen, Urine Not Detected (NotDetected); Phencyclidine Screen,Urine Not Detected (NotDetected); Tricyclic Antidepressant,Urine Not Detected (NotDetected); Urn Cannabinoid Scrn Not Detected (NotDetected)
[2019-09-01] MEDS ORDERED: hydrOXYzine PAMOATE 25 MG CAP PO PRN (12:54)
--- NOTE | 2019-09-01 12:55 | P.HP ---
Psychiatric H&P - . H&P Date: 09/01/19 History & Physical: Allergies Allergy/AdvReac Type Severity Reaction Status Date / Time codeine Allergy Rash/Hives Verified 08/31/19 16:55 tramadol AdvReac Severe Unknown Verified 08/31/19 16:55 prochlorperazine edisylate AdvReac Intermediate IRRITABILIT Verified 08/31/19 16:55 From Compazine Y prochlorperazine maleate AdvReac Intermediate IRRITABILIT Verified 08/31/19 16:55 From Compazine Y Vital Signs Temp 98.7 F 09/01/19 06:29 Pulse 85 09/01/19 06:29 Resp 16 09/01/19 06:29 BP 136/75 09/01/19 06:29 Pulse Ox 97 08/31/19 16:56 Intake & Output 08/31/19 09/01/19 09/01/19 18:59 06:59 18:59 Weight 58.967 kg Laboratory Last Values WBC 8.6 k/uL (3.8-10.6) 09/01/19 07:05 RBC 4.16 m/uL (3.80-5.40) 09/01/19 07:05 Hgb 13.2 gm/dL (11.4-16.0) 09/01/19 07:05 Hct 40.7 % (34.0-46.0) 09/01/19 07:05 MCV 97.8 fL (80.0-100.0) 09/01/19 07:05 MCH 31.8 pg (25.0-35.0) 09/01/19 07:05 MCHC 32.5 g/dL (31.0-37.0) 09/01/19 07:05 RDW 13.0 % (11.5-15.5) 09/01/19 07:05 Plt Count 270 k/uL (150-450) 09/01/19 07:05 Neutrophils % 68 % 09/01/19 07:05 Lymphocytes % 21 % 09/01/19 07:05 Monocytes % 6 % 09/01/19 07:05 Eosinophils % 3 % 09/01/19 07:05 Basophils % 0 % 09/01/19 07:05 Neutrophils # 5.8 k/uL (1.3-7.7) 09/01/19 07:05 Lymphocytes # 1.8 k/uL (1.0-4.8) 09/01/19 07:05 Monocytes # 0.5 k/uL (0-1.0) 09/01/19 07:05 Eosinophils # 0.2 k/uL (0-0.7) 09/01/19 07:05 Basophils # 0.0 k/uL (0-0.2) 09/01/19 07:05 PT 11.2 sec (9.0-12.0) 08/31/19 17:54 INR 1.1 (<1.2) 08/31/19 17:54 APTT 25.8 sec (22.0-30.0) 08/31/19 16:06 Sodium 139 mmol/L (137-145) 09/01/19 07:05 Potassium 3.9 mmol/L (3.5-5.1) 09/01/19 07:05 Chloride 107 mmol/L (98-107) 09/01/19 07:05 Carbon Dioxide 27 mmol/L (22-30) 09/01/19 07:05 Anion Gap 5 mmol/L 09/01/19 07:05 BUN 10 mg/dL (7-17) 09/01/19 07:05 Creatinine 0.67 mg/dL (0.52-1.04) 09/01/19 07:05 Est GFR (CKD-EPI)AfAm >90 (>60 ml/min/1.73 sqM) 09/01/19 07:05 Est GFR (CKD-EPI)NonAf >90 (>60 ml/min/1.73 sqM) 09/01/19 07:05 Glucose 98 mg/dL (74-99) 09/01/19 07:05 Calcium 9.1 mg/dL (8.4-10.2) 09/01/19 07:05 Total Bilirubin 0.9 mg/dL (0.2-1.3) 09/01/19 07:05 AST 30 U/L (14-36) 09/01/19 07:05 ALT 14 U/L (4-34) 09/01/19 07:05 Alkaline Phosphatase 74 U/L (38-126) 09/01/19 07:05 Total Protein 6.7 g/dL (6.3-8.2) 09/01/19 07:05 Albumin 3.9 g/dL (3.5-5.0) 09/01/19 07:05 Triglycerides 102 mg/dL (<150) 09/01/19 07:05 Cholesterol 191 mg/dL (<200) 09/01/19 07:05 LDL Cholesterol, Calc 101 mg/dL (0-99) H 09/01/19 07:05 HDL Cholesterol 70 mg/dL (40-60) H 09/01/19 07:05 TSH 0.327 mIU/L (0.465-4.680) L 09/01/19 07:05 Urine Color Yellow 09/01/19 09:10 Urine Appearance Cloudy (Clear) H 09/01/19 09:10 Urine pH 6.5 (5.0-8.0) 09/01/19 09:10 Ur Specific [place] 1.030 (1.001-1.035) 09/01/19 09:10 Urine Protein 1+ (Negative) H 09/01/19 09:10 Urine Glucose (UA) Negative (Negative) 09/01/19 09:10 Urine Ketones Negative (Negative) 09/01/19 09:10 Urine Blood Trace (Negative) H 09/01/19 09:10 Urine Nitrite Negative (Negative) 09/01/19 09:10 Urine Bilirubin Negative (Negative) 09/01/19 09:10 Urine Urobilinogen 2.0 mg/dL (<2.0) 09/01/19 09:10 Ur Leukocyte Esterase Small (Negative) H 09/01/19 09:10 Urine RBC 2 /hpf (0-5) 09/01/19 09:10 Urine WBC 5 /hpf (0-5) 09/01/19 09:10 Ur Squamous Epith Cells 17 /hpf (0-4) H 09/01/19 09:10 Amorphous Sediment Occasional /hpf (None) H 09/01/19 09:10 Urine Bacteria Rare /hpf (None) H 09/01/19 09:10 Urine Mucus Occasional /hpf (None) H 09/01/19 09:10 Urine HCG, Qual Not Detected (Not Detectd) 09/01/19 09:10 Salicylates <1.0 mg/dL 08/31/19 12:11 Urine Opiates Screen Detected (NotDetected) H 09/01/19 09:10 Ur Oxycodone Screen Not Detected (NotDetected) 09/01/19 09:10 Urine Methadone Screen Not Detected (NotDetected) 09/01/19 09:10 Ur Propoxyphene Screen Not Detected (NotDetected) 09/01/19 09:10 Acetaminophen <10.0 ug/mL 08/31/19 12:11 Ur Barbiturates Screen Not Detected (NotDetected) 09/01/19 09:10 U Tricyclic Antidepress Not Detected (NotDetected) 09/01/19 09:10 Ur Phencyclidine Scrn Not Detected (NotDetected) 09/01/19 09:10 Ur Amphetamines Screen Not Detected (NotDetected) 09/01/19 09:10 U Methamphetamines Scrn Not Detected (NotDetected) 09/01/19 09:10 U Benzodiazepines Scrn Detected (NotDetected) H 09/01/19 09:10 Urine Cocaine Screen Not Detected (NotDetected) 09/01/19 09:10 U Marijuana (THC) Screen Not Detected (NotDetected) 09/01/19 09:10 Serum Alcohol 86 mg/dL 08/31/19 12:11 09/01/19 12:46 IDENTIFYING DATA: Patient is a 28-year-old female is currently has 1 kid and is unemployed HPI: Patient presented to the hospital yesterday with complaints of depression and after an overdose on her Trintellix and ibuprofen. Patient stated that she has been taking her antidepressant medication for several months and states that she was feeling good with regard to her mood however states that for the past 2 weeks she reached a "plateau" with her 20 mg dose and stated that "it wasn't working anymore". She states that she began feeling more suicidal and depressed in the past 2 weeks. She states that she's been dealing with several social stressors at home including being the "black sheep of the family" and states that her siblings are doing much better than her and her family is resenting her for it. She states that at her grandfather's 90th birthday constitution party patient stated that her family would not let her in any of the pictures and states that she felt really bad about herself and felt "worthless and hopeless". She states that she has not accomplished in life and has been feeling "pissed off" at her family. She states that yesterday she felt very tearful and sad and impulsively overdosed on 30 ibuprofen tablets along with 25 Trintellix tablets. She states that after she overdosed she immediately regretted it and her called 911. She states that at this time her mood is "a bit better" and states that her sleep is "okay" and she has low energy level and fair appetite. She denies any manic symptoms in the past. She states that she was drinking alcohol the night before and her blood alcohol level on admission was 86. Patient denies any suicidal or homicidal ideations intent or plan. At this time patient denies any auditory or visual hallucinations. Patient denies any flight of ideas racing thoughts and increased in goal directed behavior. Patient admits to using cigarettes daily and has been using Xanax. She denies any other recreational drug use. PAST PSYCHIATRIC HISTORY: Patient states that she has a history of anxiety and depression and was last admitted to the mental health unit on February 2019. She states that she was going to [facility] for therapy and having her medications prescribed by her primary care physician. She claims that she's had 2 suicide attempts in the past. PMH: She states that she has a seizure disorder however has been seizure free on no medications for 3 years. ALLERGIES: as per EMR CHEMICAL DEPENDENCY HISTORY: as per HPI FAMILY PSYCHIATRIC/SUBSTANCE USE HISTORY: States that her cousin committed suicide in the past SOCIAL HISTORY: Patient was born and raised in [facility] and currently lives with her and has 1 kid and is unemployed. 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 She claims that she completed high school and some college. MENTAL STATUS EXAM: General Appearance: Patient appears to be stated age is alert, directable, and attempts to cooperate. Patient appears to have marginal hygiene and grooming. Wearing street clothing Behavior: Patient is seated without any agitated behavior. Attempts to cooperate. Speech: Patient's speech is fluent and nonpressured. Mood/Affect: Patient reports their mood is depressed, affect is congruent and constricted. Suicidality/Homicidality: Patient denies having any homicidal ideation intent or plan. Denies any suicidal ideations intent or plan Perceptions: Patient denies any visual hallucinations and denies any auditory hallucinations Though content/process: There is no evidence of any delusional thought content and thought process is linear and goal-directed. Memory and concentration: AOX3, grossly intact for the purposes of this session. Can spell "WORLD" backwards Judgment and insight: poor/impulsive. STRENGTHS/WEAKNESSES: strength is that patient is resilient. 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 Nicotine dependence PLAN: -Patient is admitted under voluntary status to MHU for stabilization of psychiatric symptoms and safety. -Medications : Will start patient on Effexor XR 37.5 mg daily for mood/anxiety. We'll also start patient on melatonin 5 mg daily at bedtime. Discontinued patient Xanax at this time due to possible abuse. Vistaril 25 mg every 8 hours when necessary for anxiety. -Geodon PRN for agitation/aggression -Patient was informed of the risks, benefits and side effects of the medication and patient verbally consented to taking the medications. -Internal Medicine consult to perform medical evaluation and physical. -NRT - nicotine patch -SW on board for discharge planning. Encourage patient to participate in groups to work on coping skills. 09/01/19 12:54
[2019-09-01] MEDS: MELATONIN 5 MG TABLET PO SCH (22:21)
[2019-09-02] MEDS: NICOTINE 14MG/24HR PATCH TRANSDERM SCH (08:54)
[2019-09-02] MEDS ORDERED: VENLAFAXINE HCL ER 37.5 MG CAP PO SCH (09:00)
[2019-09-02 10:29] LABS: Hemoglobin A1C 4.5 % (4.0-6.0)
--- NOTE | 2019-09-02 10:58 | P.MDCNMH ---
History of Present Illness H&P Date: 09/01/19 Chief Complaint: Acute drug overdose Patient is a 28-year-old female with a known history of seizure disorder currently not on any antiepileptic medications with last seizure more than 3 years ago, history of ACL tear, anxiety/depression and PTSD and also marijuana use presents to ER after taking 30 tablets of 200 mg Motrin and 25 tablets of antidepressants Trintellix. Patient presents ER approximately about 35-40 minutes after ingestion. Patient says that she has been depressed recently and didn't want to deal with it which made her to attempt suicide. Patient was also alcohol intoxicated at the time. In the ER patient underwent gastric lavage and also was given activated charcoal. Patient was able to vomit out most of the tablets. Patient is currently denied any complaints of chest pain or shortness of breath. No nausea vomiting or abdominal pain. No diarrhea. Renal function is stable. No fever no chills. No headache or dizziness or lightheadedness. Serum alcohol level 86 UDS is positive for opiates and benzodiazepines TSH is 0.327 , free T4 within normal limits. Review of Systems Constitutional: Patient denies any fever or chills . No generalized weakness or weight loss. Abdomen: Patient denied nausea vomiting and diarrhea and abdominal pain. Cardiovascular: Patient denies any chest pain or short of breath no palpitations. Respiratory: patient denied any cough is from production. No shortness of breath Neurologic: Patient denied any numbness or tingling headache. Musculoskeletal: Patient denies any complaints of joint swelling or deformity. Skin: Negative Psychiatric: Negative Endocrine: No heat or cold intolerance. No recent weight gain. Genitourinary: No dysuria or hematuria. All other 14 point ROS negative except the above Past Medical History Past Medical History: Seizure Disorder Additional Past Medical History / Comment(s): Patient has been seizure free for 3 years. History of Any Multi-Drug Resistant Organisms: None Reported Past Surgical History: Appendectomy Past Anesthesia/Blood Transfusion Reactions: No Reported Reaction Smoking Status: Current some day smoker - Past Family History Brother(s) Additional Family Medical History / Comment(s): Cystic fibrosis Medications and Allergies Home Medications Medication Instructions Recorded Confirmed Type ALPRAZolam [Xanax] 1 mg PO DAILY PRN 08/31/19 08/31/19 History HYDROcodone/APAP 5-325MG [[place] 0.5 - 1 tab PO DAILY PRN 08/31/19 08/31/19 History 5-325] Ibuprofen [Motrin Ib] 200 - 800 mg PO Q8H PRN 08/31/19 08/31/19 History Vortioxetine Hydrobromide 20 mg PO DAILY 08/31/19 08/31/19 History [Trintellix] Allergies Allergy/AdvReac Type Severity Reaction Status Date / Time codeine Allergy Rash/Hives Verified 08/31/19 16:55 tramadol AdvReac Severe Unknown Verified 08/31/19 16:55 prochlorperazine edisylate AdvReac Intermediate IRRITABILIT Verified 08/31/19 16:55 [From Compazine] Y prochlorperazine maleate AdvReac Intermediate IRRITABILIT Verified 08/31/19 16:55 [From Compazine] Y Physical Exam Vitals: Vital Signs Temp Pulse Pulse Resp BP BP Pulse Ox 09/01/19 06:29 98.7 F 85 16 136/75 08/31/19 16:56 98.5 F 88 18 128/75 97 08/31/19 16:10 89 20 125/89 98 08/31/19 15:00 98 Intake and Output 08/31/19 09/01/19 09/01/19 22:59 06:59 14:59 Other: Weight 58.967 kg PHYSICAL EXAMINATION: Patient is lying in the bed comfortably, no acute distress, awake alert and oriented.. HEENT: Normocephalic. Neck is supple. Pupils reactive. Nostrils clear. Oral cavity is moist. Ears reveal no drainage. Neck reveals no JVD, carotid bruits, or thyromegaly. CHEST EXAMINATION: Trachea is central. Symmetrical expansion. Lung rodriguez clear to auscultation and percussion. CARDIAC: Normal S1, S2 with no gallops. No murmurs ABDOMEN: Soft. Bowel sounds normal. No organomegaly. No abdominal bruits. Extremities: reveal no edema. No clubbing or cyanosis Neurologically awake, alert, oriented x3 with well-coordinated movements. No focal deficits noted Skin: No rash or skin lesions. Psychiatric: Coperative. Nonsuicidal Musculoskeletal: No joint swelling or deformity. Normal range of motion. Cranial Nerve Examination - Cranial Nerves Cranial Nerve I- Olfactory: Intact Cranial Nerve II- Optic: Intact Cranial Nerve III- Oculomotor: Intact Cranial Nerve IV- Trochlear: Intact Cranial Nerve V- Trigeminal: Intact Cranial Nerve - Abducens: Intact Cranial Nerve VII- Facial: Intact Cranial Nerve VIII- Auditory: Intact Cranial Nerve IX- Glossopharyngeal: Intact Cranial Nerve X- Vagus: Intact Cranial Nerve XI- Accessory: Intact Cranial Nerve XII- Hypoglossal: Intact Results CBC & Chem 7: 09/01/19 07:05 09/01/19 07:05 Labs: Abnormal Lab Results - Last 24 Hours (Table) 08/31/19 09/01/19 09/01/19 Range/Units 17:54 07:05 09:10 Chloride 108 H (98-107) mmol/L Glucose 106 H (74-99) mg/dL LDL Cholesterol, Calc 101 H (0-99) mg/dL HDL Cholesterol 70 H (40-60) mg/dL TSH 0.327 L (0.465-4.680) mIU/L Urine Appearance Cloudy H (Clear) Urine Protein 1+ H (Negative) Urine Blood Trace H (Negative) Ur Leukocyte Esterase Small H (Negative) Ur Squamous Epith Cells 17 H (0-4) /hpf Amorphous Sediment Occasional H (None) /hpf Urine Bacteria Rare H (None) /hpf Urine Mucus Occasional H (None) /hpf Urine Opiates Screen Detected H (NotDetected) U Benzodiazepines Scrn Detected H (NotDetected) Assessment and Plan Assessment: Acute suicide attempt with drug overdose. Drug overdose with Motrin and antidepressant, trintellix. 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 Encourage oral intake and adequate hydration. AST level is normalized. Renal function stable. Patient denied any complaints of abdominal pain or nausea. We will continue the current management and follow closely. Further recommendations based on the clinical course. Thank you for your consult. Time with Patient: Greater than 30
--- NOTE | 2019-09-02 11:29 | P.PN ---
Progress Note - Text Interval history: The patient is found in group she follows me to an interview room. She was admitted to the mental health unit after an overdose with Motrin and Trintellix. This seems to be precipitated by conflict within her family. She states things with her been going very well. We spent several minutes discussing the circumstances of the overdose and alternative choices she could've made. We reviewed her current medication options. Questions and concerns regarding Effexor were addressed. We discussed Pristiq as an alternative and she is agreeable. Mental status exam: The patient is alert she is dressed in her own clothing hygiene grooming adequate. Eye contact is appropriate speech is fluent spontaneous nonpressured. She indicates her mood is improved. Affect is constricted. She is reporting no suicidal or homicidal ideation intent or plan today. She is reporting no auditory or visual hallucinations or any specific delusions. There is no observed evidence of psychosis. She demonstrates no tangential thinking loose associations or flight of ideas. He does not appear hypomanic or manic. Insight and judgment limited. She is oriented to person place and date. She demonstrates no verbal or physical aggressiveness. During the course of the conversation it is evident that she does experience symptoms related to personality disorder traits most likely cluster B. Plan: The patient will be started on Pristiq 50 mg daily starting tomorrow we will discontinue the Effexor. Suggestions for cognitive restructuring were offered. We will monitor her for safety and encourage full participation in the milieu. We will gather collateral information from her . Vital signs reviewed. I expect that she will stabilize and be appropriate for discharge sometime this week.
[2019-09-02] MEDS: MELATONIN 5 MG TABLET PO SCH (21:51)
[2019-09-03 06:43] VITALS: BP 128/81; PULSE 82; RESP 14; TEMP 98.3
[2019-09-03] MEDS: NICOTINE 14MG/24HR PATCH TRANSDERM SCH (08:41)
[2019-09-03] MEDS ORDERED: DESVENLAFAXINE SUCCINATE 50 MG TAB.ER.24H PO SCH (09:00)
--- NOTE | 2019-09-03 11:06 | P.DS ---
Providers Date of admission: 08/31/19 15:49 Expected date of discharge: 09/03/19 Attending physician: Ayaz Beltran Consults: 08/31/19 15:58 Consult Physician Routine Consulting Provider: Lc Hatfield Consult Reason/Comments: medical management Do you want consulting provider notified?: Yes Primary care physician: Jericho Garcia Charbal - Discharge Diagnosis(es) (1) Major depressive disorder, recurrent severe without psychotic features Current Visit: Yes Status: Acute Priority: High Hospital Course: Brief summary of admission note: This patient is a 28-year-old female who was admitted to the mental health unit after an overdose with Trintellix and Motrin. She states that she was involved in a verbal conflict with her family. This was overwhelming. It occurred in the context of her running out of her Trintellix and been off of that for several days. She was able to finally get it refilled. She states that she overdosed while at home she informed her who called for help. For full details please refer to the psychiatric evaluation dated 09/01/2019. Summary of hospital course: The patient was admitted to the mental health unit voluntarily. She was initially seen by Dr. Lofton and I assumed her care this past Monday. The patient was taken off of Trintellix she was placed on Effexor XR 37.5 mg daily. Upon meeting with her in reviewing her presenting symptoms we discussed her treatment further. We decided to discontinue the Effexor XR and proceed with Pristiq 50 mg daily. We spent a significant amount of time discussing the events precipitating her crisis. While here she was able to speak with her parents via phone she was able to express her concerns and they provided an explanation and support which she felt was appropriate. We discussed the coping skills that she has been employing and the need for developing others. She has been attending groups. Social work did reach out and speak with the patient's who felt the patient was safe to return home. The patient stated that it never was her intent to kill herself with the overdose she states that she has no hopelessness thinking now she reports no suicidal ideation intent or plan. She was seen by internal medicine for routine history and physical exam social work manager did complete a psychosocial assessment. Mental status exam: The patient is alert she is dressed room clothing hygiene and grooming are good. Eye contact is appropriate speech is fluent spontaneous nonpressured. She indicates her mood is "good" affect is congruent and appears euthymic. She reports no hopelessness thinking she reports no suicidal ideation intent or plan. She demonstrates no tangential thinking loose associations or flight of ideas. She does not appear hypomanic or manic. She reports no auditory or visual hallucinations or any specific delusions there is no observed evidence of psychosis. He demonstrates no verbal or physical aggressiveness. She remains oriented to person place and date. Insight and judgment grossly intact. She readily participates in conversation she demonstrates several examples of future oriented thinking. Impression 1. Major depressive disorder recurrent severe without psychosis Plan: The patient will be discharged today from the mental health unit to return home residing with her . Social work will arrange for outpatient mental health follow-up. The patient will continue on Pristiq 50 mg daily. She is instructed to abstain from any use of alcohol marijuana or illicit drugs as he is will elevate her safety risk. There is no need for inpatient chemical dependency treatment at this time or any medication for substance use specifically. We discussed the importance of her continuing to work with her individual therapist and focusing on CBT and DBT principles. At this time there is no imminent safety risk as she is no longer in crisis and she is appropriate for transition to outpatient care. She is instructed to return to the hospital with any acute safety concerns. Patient Condition at Discharge: Stable Plan - Discharge Summary Discharge Rx Participant: No New Discharge Prescriptions: New Melatonin 5 mg PO HS tablet Desvenlafaxine Succinate [Pristiq ER] 50 mg PO DAILY #30 tab.er.24h Discontinued Vortioxetine Hydrobromide [Trintellix] 20 mg PO DAILY Ibuprofen [Motrin Ib] 200 - 800 mg PO Q8H PRN PRN Reason: Pain HYDROcodone/APAP 5-325MG [[place] 5-325] 0.5 - 1 tab PO DAILY PRN PRN Reason: Pain ALPRAZolam [Xanax] 1 mg PO DAILY PRN PRN Reason: Anxiety Discharge Medication List Desvenlafaxine Succinate [Pristiq ER] 50 mg PO DAILY #30 tab.er.24h 09/03/19 [Rx] Melatonin 5 mg PO HS tablet 09/03/19 [Rx] Follow up Appointment(s)/Referral(s): Vannessa Echavarria MD [Primary Care Provider] - 1-2 days Activity/Diet/Wound Care/Special Instructions: Activity and diet as tolerated. Avoid the use of street drugs and alcohol. Take all medications as prescribed. When you are in need of refills on your medications please contact your medical provider and/or outpatient psychiatrist to have this done. Please go to scheduled outpatient appointment for aftercare treatment. If symptoms return or become worse, call the crisis line at and/or go to the nearest emergency room for evaluation.
== END 2019-09-03 13:10 | disposition home or self-care (01) | DRG 885 ==
LOC: EC 11:40 → 3MHU 15:49
PROVIDERS: ADMIT Psychiatry & Neurology Psychiatry; ATTEND Psychiatry & Neurology Psychiatry
DX: F33.2 Major depressive disorder, recurrent severe without psychotic features (principal); F13.10 Sedative, hypnotic or anxiolytic abuse, uncomplicated; F17.210 Nicotine dependence, cigarettes, uncomplicated; F43.10 Post-traumatic stress disorder, unspecified; G40.909 Epilepsy, unspecified, not intractable, without status epilepticus; T43.212A Poisoning by selective serotonin and norepinephrine reuptake inhibitors, intentional self-harm, initial encounter; T39.312A Poisoning by propionic acid derivatives, intentional self-harm, initial encounter; F41.9 Anxiety disorder, unspecified; Z81.8 Family history of other mental and behavioral disorders; Z91.5 Personal history of self-harm; Z88.5 Allergy status to narcotic agent; Y90.4 Blood alcohol level of 80-99 mg/100 ml
CPT/HCPCS: 36415; 80053; 80061; 80306; 80320; 80329; 81001; 81025; 82075; 83036; 83520; 84439; 84443; 84450; 84460; 85025; 85610; 85730; 93005; 96361; 96374; 96375; 99285

== ENCOUNTER 2021-01-01 11:04 | Emergency (ER) | payer OTHER ==
[2021-01-01 11:19] VITALS: TEMP 98.1
[2021-01-01] MEDS ORDERED: ONDANSETRON 4 MG/2 ML VIAL IVP STA (12:16)
[2021-01-01] MEDS ORDERED: SODIUM CHLORIDE 0.9% 1,000 ML IV STA (12:16)
[2021-01-01] MEDS ORDERED: HYDROmorphone 0.5 MG/0.5 ML SYRINGE IVP STA ×2 (12:16→14:28)
[2021-01-01 13:04] LABS: Basophils # (A) 0.1 k/uL (0-0.2); Basophils % (A) 1 %; Eosinophils # (A) 0.3 k/uL (0-0.7); Eosinophils % (A) 2 %; HCT 43.8 % (34.0-46.0); HGB 14.5 gm/dL (11.4-16.0); Lymphocytes # (A) 1.7 k/uL (1.0-4.8); Lymphocytes % (A) 15 %; MCH 33.3 pg (25.0-35.0); MCHC 33.1 g/dL (31.0-37.0); MCV 100.7 fL (80.0-100.0); Monocytes # (A) 0.6 k/uL (0-1.0); Monocytes % (A) 5 %; Neutrophils # (A) 8.7 k/uL (1.3-7.7); Neutrophils % (A) 76 %; Platelet Count 286 k/uL (150-450); RBC 4.35 m/uL (3.80-5.40); RDW 12.5 % (11.5-15.5); WBC 11.4 k/uL (3.8-10.6)
--- NOTE | 2021-01-01 13:13 | US ---
EXAMINATION TYPE: US abdomen limited DATE OF EXAM: 01/01/2021 COMPARISON: CT 02/25/2016 CLINICAL HISTORY: ruq. Generalized pain EXAM MEASUREMENTS: Liver Length: 17.5 cm Gallbladder Wall: 0.3 cm CBD: 0.3 cm Right Kidney: 9.8 x 4.6 x 3.9 cm Pancreas: wnl Liver: wnl Gallbladder: wnl, fold seen Evidence for sonographic Pérez's sign: neg CBD: wnl Right Kidney: No hydronephrosis or masses seen IMPRESSION: Unremarkable exam.
[2021-01-01 13:19] LABS: ALT 17 U/L (4-34); AST 32 U/L (14-36); African American GFR (CKD) >90 (>60 ml/min/1.73 sqM); Albumin 4.3 g/dL (3.5-5.0); Alkaline Phosphatase 77 U/L (38-126); Amylase 45 U/L (30-110); Anion Gap 6 mmol/L; Blood Urea Nitrogen 10 mg/dL (7-17); Calcium 9.2 mg/dL (8.4-10.2); Carbon Dioxide 26 mmol/L (22-30); Chloride 107 mmol/L (98-107); Glucose 100 mg/dL (74-99); Lipase 29 U/L (23-300); Non-African American GFR(CKD) >90 (>60 ml/min/1.73 sqM); Potassium 4.7 mmol/L (3.5-5.1); Sodium 139 mmol/L (137-145); Total Bilirubin 0.5 mg/dL (0.2-1.3); Total Protein 6.9 g/dL (6.3-8.2)
[2021-01-01 13:22] LABS: Appearance,Urine Clear (Clear); Bilirubin,Urine Negative (Negative); Blood,Urine Negative (Negative); Color,Urine Light Yellow; Glucose,Urine (UA) Negative (Negative); Ketones,Urine Negative (Negative); Leukocyte Esterase,Urine Negative (Negative); Nitrite,Urine Negative (Negative); PH, Urine 6.5 (5.0-8.0); Protein,Urine Negative (Negative); Specific Gravity,Urine 1.009 (1.001-1.035); Urobilinogen,Urine <2.0 mg/dL (<2.0)
--- NOTE | 2021-01-01 13:26 | ED ---
General Adult HPI - General Chief complaint: Abdominal Pain Stated complaint: abd pain Time Seen by Provider: 01/01/21 11:29 Source: patient, RN notes reviewed Mode of arrival: ambulatory Limitations: no limitations - History of Present Illness Initial comments: 30-year-old female presents to the emergency room for a chief complaint of upper abdominal pain. Patient reports this is been ongoing for about a week but is worsening. States it is epigastric and right side. Patient states it has been constant. Patient states she has been worked up for her gallbladder in the past and needed a HIDA scan by her insurance did not cover this. Patient denies vomiting but does admit to nausea. Denies diarrhea. Denies fevers or chills. Patient has no other complaints at this time including shortness of breath, chest pain, vomiting, headache, or visual changes. - Related Data Home Medications Medication Instructions Recorded Confirmed ALPRAZolam [Xanax] 0.5 - 1 mg PO DAILY PRN 01/01/21 01/01/21 Previous Rx's Medication Instructions Recorded Desvenlafaxine Succinate [Pristiq 50 mg PO DAILY #30 tab.er.24h 09/03/19 ER] Dicyclomine [Bentyl] 20 mg PO TID PRN #20 tablet 01/01/21 Allergies Allergy/AdvReac Type Severity Reaction Status Date / Time codeine Allergy Rash/Hives Verified 01/01/21 14:40 tramadol AdvReac Severe Unknown Verified 01/01/21 14:40 prochlorperazine edisylate AdvReac Intermediate IRRITABILIT Verified 01/01/21 14:40 [From Compazine] Y prochlorperazine maleate AdvReac Intermediate IRRITABILIT Verified 01/01/21 14:40 [From Compazine] Y Review of Systems ROS Statement: Those systems with pertinent positive or pertinent negative responses have been documented in the HPI. ROS Other: All systems not noted in ROS Statement are negative. Past Medical History Past Medical History: Seizure Disorder Additional Past Medical History / Comment(s): Patient has been seizure free for 3 years. History of Any Multi-Drug Resistant Organisms: None Reported Past Surgical History: Appendectomy Past Anesthesia/Blood Transfusion Reactions: No Reported Reaction Past Psychological History: Anxiety, Depression, PTSD Smoking Status: Current every day smoker Past Alcohol Use History: Rare Past Drug Use History: Marijuana - Past Family History Brother(s) Additional Family Medical History / Comment(s): Cystic fibrosis General Exam Limitations: no limitations General appearance: alert, in no apparent distress Head exam: Present: atraumatic, normocephalic, normal inspection Eye exam: Present: normal appearance, PERRL, EOMI. Absent: scleral icterus, conjunctival injection, periorbital swelling ENT exam: Present: normal exam, mucous membranes moist Neck exam: Present: normal inspection Respiratory exam: Present: normal lung sounds bilaterally. Absent: respiratory distress, wheezes, rales, rhonchi, stridor Cardiovascular Exam: Present: regular rate, normal rhythm, normal heart sounds. Absent: systolic murmur, diastolic murmur, rubs, gallop, clicks GI/Abdominal exam: Present: soft, tenderness (Tenderness to palpation with epigastric and right upper quadrant area), normal bowel sounds. Absent: dis tended, guarding, rebound, rigid Neurological exam: Present: alert Course Vital Signs 01/01/21 01/01/21 01/01/21 11:16 13:19 14:46 Temperature 98.1 F Pulse Rate 70 75 72 Respiratory 16 18 20 Rate Blood Pressure 126/82 113/82 112/71 O2 Sat by Pulse 99 95 98 Oximetry EKG Findings - EKG Comments: EKG Findings:: Normal sinus rhythm, ventricular rate 61, CO interval 156, QTC 418 Medical Decision Making - Medical Decision Making Vitals are stable. Patient is well-appearing. Patient does have epigastric and right upper quadrant tenderness. CBC CMP unremarkable. Urinalysis negative. HCG is not detected. Ultrasound was initially obtained which was unremarkable. Negative sonographic Pérez sign. Gallbladder is within normal limits. CT abdomen and pelvis does show fluid-filled prominent small bowel loops predominantly in the left abdomen the correlate for ileus or enteritis. I did interview patient again and she now does admit to diarrhea which would clinically correlate. There is no evidence of partial obstruction. Patient is passing gas and stool. There are also bilateral adnexal cysts are likely ovarian in etiology. At this time patient will be discharged home to follow up with primary care. She is discharged in stable condition. We will start her on Bentyl. She will return here for any worsening symptoms. We'll also have her follow up with GI as she may need upper endoscopy. - Lab Data Result diagrams: 01/01/21 12:24 01/01/21 12:24 Lab Results 01/01/21 01/01/21 01/01/21 Range/Units 12:24 12:24 12:24 WBC 11.4 H (3.8-10.6) k/uL RBC 4.35 (3.80-5.40) m/uL Hgb 14.5 (11.4-16.0) gm/dL Hct 43.8 (34.0-46.0) % MCV 100.7 H (80.0-100.0) fL MCH 33.3 (25.0-35.0) pg MCHC 33.1 (31.0-37.0) g/dL RDW 12.5 (11.5-15.5) % Plt Count 286 (150-450) k/uL MPV 9.0 Neutrophils % 76 % Lymphocytes % 15 % Monocytes % 5 % Eosinophils % 2 % Basophils % 1 % Neutrophils # 8.7 H (1.3-7.7) k/uL Lymphocytes # 1.7 (1.0-4.8) k/uL Monocytes # 0.6 (0-1.0) k/uL Eosinophils # 0.3 (0-0.7) k/uL Basophils # 0.1 (0-0.2) k/uL Sodium 139 (137-145) mmol/L Potassium 4.7 (3.5-5.1) mmol/L Chloride 107 (98-107) mmol/L Carbon Dioxide 26 (22-30) mmol/L Anion Gap 6 mmol/L BUN 10 (7-17) mg/dL Creatinine 0.66 (0.52-1.04) mg/dL Est GFR (CKD-EPI)AfAm >90 (>60 ml/min/1.73 sqM) Est GFR (CKD-EPI)NonAf >90 (>60 ml/min/1.73 sqM) Glucose 100 H (74-99) mg/dL Plasma Lactic Acid Ike (0.7-2.0) mmol/L Calcium 9.2 (8.4-10.2) mg/dL Total Bilirubin 0.5 (0.2-1.3) mg/dL AST 32 (14-36) U/L ALT 17 (4-34) U/L Alkaline Phosphatase 77 (38-126) U/L Total Protein 6.9 (6.3-8.2) g/dL Albumin 4.3 (3.5-5.0) g/dL Amylase 45 (30-110) U/L Lipase 29 (23-300) U/L Urine Color Light Yellow Urine Appearance Clear (Clear) Urine pH 6.5 (5.0-8.0) Ur Specific [place] 1.009 (1.001-1.035) Urine Protein Negative (Negative) Urine Glucose (UA) Negative (Negative) Urine Ketones Negative (Negative) Urine Blood Negative (Negative) Urine Nitrite Negative (Negative) Urine Bilirubin Negative (Negative) Urine Urobilinogen <2.0 (<2.0) mg/dL Ur Leukocyte Esterase Negative (Negative) Urine HCG, Qual (Not Detectd) 01/01/21 01/01/21 Range/Units 12:24 12:24 WBC (3.8-10.6) k/uL RBC (3.80-5.40) m/uL Hgb (11.4-16.0) gm/dL Hct (34.0-46.0) % MCV (80.0-100.0) fL MCH (25.0-35.0) pg MCHC (31.0-37.0) g/dL RDW (11.5-15.5) % Plt Count (150-450) k/uL MPV Neutrophils % % Lymphocytes % % Monocytes % % Eosinophils % % Basophils % % Neutrophils # (1.3-7.7) k/uL Lymphocytes # (1.0-4.8) k/uL Monocytes # (0-1.0) k/uL Eosinophils # (0-0.7) k/uL Basophils # (0-0.2) k/uL Sodium (137-145) mmol/L Potassium (3.5-5.1) mmol/L Chloride (98-107) mmol/L Carbon Dioxide (22-30) mmol/L Anion Gap mmol/L BUN (7-17) mg/dL Creatinine (0.52-1.04) mg/dL Est GFR (CKD-EPI)AfAm (>60 ml/min/1.73 sqM) Est GFR (CKD-EPI)NonAf (>60 ml/min/1.73 sqM) Glucose (74-99) mg/dL Plasma Lactic Acid Ike 1.3 (0.7-2.0) mmol/L Calcium (8.4-10.2) mg/dL Total Bilirubin (0.2-1.3) mg/dL AST (14-36) U/L ALT (4-34) U/L Alkaline Phosphatase (38-126) U/L Total Protein (6.3-8.2) g/dL Albumin (3.5-5.0) g/dL Amylase (30-110) U/L Lipase (23-300) U/L Urine Color Urine Appearance (Clear) Urine pH (5.0-8.0) Ur Specific [place] (1.001-1.035) Urine Protein (Negative) Urine Glucose (UA) (Negative) Urine Ketones (Negative) Urine Blood (Negative) Urine Nitrite (Negative) Urine Bilirubin (Negative) Urine Urobilinogen (<2.0) mg/dL Ur Leukocyte Esterase (Negative) Urine HCG, Qual Not Detected (Not Detectd) Disposition Clinical Impression: Abdominal pain, Ovarian cyst Disposition: HOME SELF-CARE Condition: Good Instructions (If sedation given, give patient instructions): Abdominal Pain (ED) Additional Instructions: Please follow-up with your doctor and GI. Return to the emergency room for any worsening symptoms. Prescriptions: Dicyclomine [Bentyl] 20 mg PO TID PRN #20 tablet PRN Reason: abdominal pain Is patient prescribed a controlled substance at d/c from ED?: No Referrals: Vannessa Echavarria MD [Primary Care Provider] - 1-2 days Rodrigo Trotter MD [STAFF PHYSICIAN] - 1-2 days Time of Disposition: 15:12
--- NOTE | 2021-01-01 14:41 | CT ---
EXAMINATION TYPE: CT abdomen pelvis w con DATE OF EXAM: 01/01/2021 COMPARISON: 02/25/2016 HISTORY: Abd pain CT DLP: 837.5 mGycm Automated exposure control for dose reduction was used. CONTRAST: CT scan of the abdomen pelvis is performed with IV Contrast, patient injected with 100 mL of Isovue 3 00. FINDINGS- LUNG BASES-subsegmental changes involving the lung bases bilaterally. LIVER/GB- No gross abnormality is appreciated. PANCREAS- No gross abnormality is seen. SPLEEN- No gross abnormality is seen. ADRENALS- No gross abnormality is seen. KIDNEYS/BLADDER- no hydronephrosis nephrolithiasis or renal mass. BOWEL-bowel gas pattern nonspecific with prominent small bowel loops noted in the left abdomen. Does appear to be a caliber change in the lower abdomen centrally. LYMPH NODES- No greater than 1cm abdominal or pelvic lymph nodes areappreciated. OSSEOUS STRUCTURES- No significant abnormality is seen. OTHER- intrauterine device is seen and there is prominent cystic adnexal structures greater on the r ight measuring 2.3 cm correlate for ovarian cysts. Pelvic ultrasound could BE obtained as clinically warranted. Aorta of normal caliber. IMPRESSION- 1. Fluid-filled prominent small bowel loops predominantly in the left abdomen correlate for ileus or enteritis. Slight caliber change at the level the lower mid abdomen is also noted. Differential diagn osis includes enteritis or ileus versus partial obstruction. Correlate clinically. 2. Bilateral adnexal cysts is likely ovarian correlate with pelvic ultrasound as clinically warranted .
[2021-01-01 15:51] VITALS: BP 128/79; PULSE 78; RESP 18
== END 2021-01-01 15:40 | disposition home or self-care (01) ==
LOC: EC 11:04
DX: N83.202 Unspecified ovarian cyst, left side (principal); N83.201 Unspecified ovarian cyst, right side; F32.9 Major depressive disorder, single episode, unspecified; F17.200 Nicotine dependence, unspecified, uncomplicated; F12.90 Cannabis use, unspecified, uncomplicated
CPT/HCPCS: 36415; 93005; 80053; 82150; 83605; 83690; 85025; 81003; 81025; 76705; 74177; 99284; 96374; 96375; 96376; 96361; J2405; J1170; Q9967

== ENCOUNTER 2022-01-02 07:42 | Emergency (ER) | payer OTHER ==
[2022-01-02 07:51] VITALS: RESP 18; TEMP 98.4
[2022-01-02] MEDS ORDERED: KETOROLAC 15 MG/ML 1 ML VIAL IVP STA (08:10)
[2022-01-02] MEDS ORDERED: SODIUM CHLORIDE 0.9% 1,000 ML IV STA (08:10)
--- NOTE | 2022-01-02 08:30 | ED ---
Abdominal Pain HPI - General Chief Complaint: Abdominal Pain Stated Complaint: Abd Pain, nausea Time Seen by Provider: 01/02/22 07:56 Source: patient Mode of arrival: ambulatory Limitations: no limitations - History of Present Illness Initial Comments: Patient is a 31-year-old female presenting with chief complaint of abdominal pain. Pain is primarily in the right upper quadrant, has been present for the last 3 weeks, worsened this morning. Patient states she frequently feels bloated and has been experiencing vomiting after meals. She denies any fever, chills, chest pain, shortness of breath, diarrhea, hematochezia, melena, hematuria, dysuria, urgency, frequency, back pain. - Related Data Home Medications Medication Instructions Recorded Confirmed ALPRAZolam [Xanax] 0.5 - 1 mg PO DAILY PRN 01/01/21 01/01/21 Previous Rx's Medication Instructions Recorded Desvenlafaxine Succinate [Pristiq 50 mg PO DAILY #30 tab.er.24h 09/03/19 ER] Dicyclomine [Bentyl] 20 mg PO TID PRN #20 tablet 01/01/21 Dicyclomine [Bentyl] 20 mg PO QID PRN #30 tablet 01/02/22 Allergies Allergy/AdvReac Type Severity Reaction Status Date / Time codeine Allergy Rash/Hives Verified 01/01/21 14:40 tramadol AdvReac Severe Unknown Verified 01/01/21 14:40 prochlorperazine edisylate AdvReac Intermediate IRRITABILIT Verified 01/01/21 14:40 [From Compazine] Y prochlorperazine maleate AdvReac Intermediate IRRITABILIT Verified 01/01/21 14:40 [From Compazine] Y Review of Systems ROS Statement: Those systems with pertinent positive or pertinent negative responses have been documented in the HPI. ROS Other: All systems not noted in ROS Statement are negative. Past Medical History Past Medical History: Seizure Disorder Additional Past Medical History / Comment(s): Patient has been seizure free for 3 years. History of Any Multi-Drug Resistant Organisms: None Reported Past Surgical History: Appendectomy Past Anesthesia/Blood Transfusion Reactions: No Reported Reaction Past Psychological History: Anxiety, Depression, PTSD Smoking Status: Current every day smoker Past Alcohol Use History: Rare Past Drug Use History: Marijuana - Past Family History Brother(s) Additional Family Medical History / Comment(s): Cystic fibrosis General Exam Limitations: no limitations General appearance: alert, in no apparent distress Head exam: Present: atraumatic, normocephalic, normal inspection Eye exam: Present: normal appearance, EOMI. Absent: scleral icterus, periorbi elliot swelling Neck exam: Present: normal inspection Respiratory exam: Present: normal lung sounds bilaterally. Absent: respiratory distress, wheezes, rales, rhonchi, stridor Cardiovascular Exam: Present: regular rate, normal rhythm, normal heart sounds. Absent: systolic murmur, diastolic murmur, rubs, gallop, clicks GI/Abdominal exam: Present: soft, tenderness (RUQ, negative pérez's sign), normal bowel sounds. Absent: distended, guarding, rebound, rigid Neurological exam: Present: alert, oriented X3, CN II-XII intact Psychiatric exam: Present: normal affect, normal mood Skin exam: Present: warm, dry, intact, normal color. Absent: rash Course Vital Signs 01/02/22 01/02/22 07:47 10:29 Temperature 98.4 F 98.4 F Pulse Rate 85 75 Respiratory 18 18 Rate Blood Pressure 133/87 144/94 O2 Sat by Pulse 98 100 Oximetry Medical Decision Making - Medical Decision Making Patient is a 31 y/o F presenting with CC of abdominal pain, located in the RUQ. Admits to bloating, vomiting, present for 3 weeks. On exam, some tenderness in the RUQ, neg Pérez's sign. Labs are grossly negative. US shows hepatic hemangioma, otherwise negative study. Patient reports improvement in symptoms after medication and fluids. She appears stable for discharge with outpatient follow up. report back to ER with any new or worsening symptoms. Discussed return parameters and answered all questions. Patient conveyed verbal understanding and agreed to the plan. I discussed this case with my attending Dr. Laguna. - Lab Data Result diagrams: 01/02/22 08:10 01/02/22 08:10 Lab Results 01/02/22 01/02/22 01/02/22 Range/Units 08:10 08:10 08:10 WBC 7.6 (3.8-10.6) k/uL RBC 4.04 (3.80-5.40) m/uL Hgb 13.3 (11.4-16.0) gm/dL Hct 41.6 (34.0-46.0) % MCV 103.0 H (80.0-100.0) fL MCH 33.0 (25.0-35.0) pg MCHC 32.0 (31.0-37.0) g/dL RDW 11.9 (11.5-15.5) % Plt Count 338 (150-450) k/uL MPV 8.2 Neutrophils % 71 % Lymphocytes % 18 % Monocytes % 5 % Eosinophils % 3 % Basophils % 1 % Neutrophils # 5.4 (1.3-7.7) k/uL Lymphocytes # 1.4 (1.0-4.8) k/uL Monocytes # 0.4 (0-1.0) k/uL Eosinophils # 0.2 (0-0.7) k/uL Basophils # 0.1 (0-0.2) k/uL Macrocytosis Slight Sodium (137-145) mmol/L Potassium (3.5-5.1) mmol/L Chloride (98-107) mmol/L Carbon Dioxide (22-30) mmol/L Anion Gap mmol/L BUN (7-17) mg/dL Creatinine (0.52-1.04) mg/dL Est GFR (CKD-EPI)AfAm (>60 ml/min/1.73 sqM) Est GFR (CKD-EPI)NonAf (>60 ml/min/1.73 sqM) Glucose (74-99) mg/dL Plasma Lactic Acid Ike (0.7-2.0) mmol/L Calcium (8.4-10.2) mg/dL Total Bilirubin (0.2-1.3) mg/dL AST (14-36) U/L ALT (4-34) U/L Alkaline Phosphatase (38-126) U/L Total Protein (6.3-8.2) g/dL Albumin (3.5-5.0) g/dL Amylase (30-110) U/L Lipase (23-300) U/L Urine Color Yellow Urine Appearance Cloudy H (Clear) Urine pH 6.0 (5.0-8.0) Ur Specific [place] 1.028 (1.001-1.035) Urine Protein Trace H (Negative) Urine Glucose (UA) Negative (Negative) Urine Ketones Negative (Negative) Urine Blood Large H (Negative) Urine Nitrite Negative (Negative) Urine Bilirubin Negative (Negative) Urine Urobilinogen <2.0 (<2.0) mg/dL Ur Leukocyte Esterase Trace H (Negative) Urine RBC 2 (0-5) /hpf Urine WBC 2 (0-5) /hpf Ur Squamous Epith Cells 7 H (0-4) /hpf Urine Mucus Few H (None) /hpf Urine HCG, Qual Not Detected (Not Detectd) 01/02/22 01/02/22 Range/Units 08:10 08:10 WBC (3.8-10.6) k/uL RBC (3.80-5.40) m/uL Hgb (11.4-16.0) gm/dL Hct (34.0-46.0) % MCV (80.0-100.0) fL MCH (25.0-35.0) pg MCHC (31.0-37.0) g/dL RDW (11.5-15.5) % Plt Count (150-450) k/uL MPV Neutrophils % % Lymphocytes % % Monocytes % % Eosinophils % % Basophils % % Neutrophils # (1.3-7.7) k/uL Lymphocytes # (1.0-4.8) k/uL Monocytes # (0-1.0) k/uL Eosinophils # (0-0.7) k/uL Basophils # (0-0.2) k/uL Macrocytosis Sodium 139 (137-145) mmol/L Potassium 4.2 (3.5-5.1) mmol/L Chloride 106 (98-107) mmol/L Carbon Dioxide 24 (22-30) mmol/L Anion Gap 9 mmol/L BUN 10 (7-17) mg/dL Creatinine 0.69 (0.52-1.04) mg/dL Est GFR (CKD-EPI)AfAm >90 (>60 ml/min/1.73 sqM) Est GFR (CKD-EPI)NonAf >90 (>60 ml/min/1.73 sqM) Glucose 105 H (74-99) mg/dL Plasma Lactic Acid Ike 1.1 (0.7-2.0) mmol/L Calcium 9.6 (8.4-10.2) mg/dL Total Bilirubin 0.7 (0.2-1.3) mg/dL AST 24 (14-36) U/L ALT 11 (4-34) U/L Alkaline Phosphatase 71 (38-126) U/L Total Protein 7.8 (6.3-8.2) g/dL Albumin 4.9 (3.5-5.0) g/dL Amylase 55 (30-110) U/L Lipase 52 (23-300) U/L Urine Color Urine Appearance (Clear) Urine pH (5.0-8.0) Ur Specific [place] (1.001-1.035) Urine Protein (Negative) Urine Glucose (UA) (Negative) Urine Ketones (Negative) Urine Blood (Negative) Urine Nitrite (Negative) Urine Bilirubin (Negative) Urine Urobilinogen (<2.0) mg/dL Ur Leukocyte Esterase (Negative) Urine RBC (0-5) /hpf Urine WBC (0-5) /hpf Ur Squamous Epith Cells (0-4) /hpf Urine Mucus (None) /hpf Urine HCG, Qual (Not Detectd) Disposition Clinical Impression: Abdominal pain Disposition: HOME SELF-CARE Condition: Good Instructions (If sedation given, give patient instructions): Abdominal Pain (ED) Additional Instructions: Follow-up with PCP in one to 2 days. Report back to ER with any new or worsen ing symptoms. Take medication as prescribed. Prescriptions: Dicyclomine [Bentyl] 20 mg PO QID PRN #30 tablet PRN Reason: Bloating Is patient prescribed a controlled substance at d/c from ED?: No Referrals: Vannessa Echavarria MD [Primary Care Provider] - 1-2 days Time of Disposition: 10:14
[2022-01-02 08:42] LABS: Basophils # (A) 0.1 k/uL (0-0.2); Basophils % (A) 1 %; Eosinophils # (A) 0.2 k/uL (0-0.7); Eosinophils % (A) 3 %; HCT 41.6 % (34.0-46.0); HGB 13.3 gm/dL (11.4-16.0); Lymphocytes # (A) 1.4 k/uL (1.0-4.8); Lymphocytes % (A) 18 %; Macrocytosis Slight; Mean Platelet Volume 8.2; Monocytes # (A) 0.4 k/uL (0-1.0); Monocytes % (A) 5 %; Neutrophils # (A) 5.4 k/uL (1.3-7.7); Neutrophils % (A) 71 %; Platelet Count 338 k/uL (150-450); RBC 4.04 m/uL (3.80-5.40); RDW 11.9 % (11.5-15.5); WBC 7.6 k/uL (3.8-10.6)
[2022-01-02 08:54] LABS: ALT 11 U/L (4-34); AST 24 U/L (14-36); African American GFR (CKD) >90 (>60 ml/min/1.73 sqM); Albumin 4.9 g/dL (3.5-5.0); Alkaline Phosphatase 71 U/L (38-126); Amylase 55 U/L (30-110); Anion Gap 9 mmol/L; Blood Urea Nitrogen 10 mg/dL (7-17); Calcium 9.6 mg/dL (8.4-10.2); Carbon Dioxide 24 mmol/L (22-30); Chloride 106 mmol/L (98-107); Glucose 105 mg/dL (74-99); Lipase 52 U/L (23-300); Non-African American GFR(CKD) >90 (>60 ml/min/1.73 sqM); Potassium 4.2 mmol/L (3.5-5.1); Sodium 139 mmol/L (137-145); Total Bilirubin 0.7 mg/dL (0.2-1.3); Total Protein 7.8 g/dL (6.3-8.2)
--- NOTE | 2022-01-02 09:18 | US ---
EXAMINATION TYPE: US abdomen limited DATE OF EXAM: 01/02/2022 COMPARISON: 01/01/2021 CLINICAL HISTORY: RUQ and epigastric pain. Pain. EXAM MEASUREMENTS: Liver Length: 17.6 cm Gallbladder Wall: 0.2 cm CBD: 0.4 cm Right Kidney: 10.0 x 4.4 x 4.1 cm Pancreas: wnl Liver: Right lobe anterior echogenic lesion, nonvascular = 3.4 x 3.2 x 1.3 cm. Gallbladder: wnl Evidence for sonographic Pérez's sign: neg CBD: wnl Right Kidney: No hydronephrosis or masses seen IMPRESSION: Probable hepatic hemangioma. Otherwise unremarkable study.
[2022-01-02 09:51] LABS: Appearance,Urine Cloudy (Clear); Bilirubin,Urine Negative (Negative); Blood,Urine Large (Negative); Color,Urine Yellow; Glucose,Urine (UA) Negative (Negative); Ketones,Urine Negative (Negative); Leukocyte Esterase,Urine Trace (Negative); Mucus,Urine Few /hpf; Nitrite,Urine Negative (Negative); Protein,Urine Trace (Negative); RBC,Urine 2 /hpf (0-5); Specific Gravity,Urine 1.028 (1.001-1.035); Squamous Epithelial Cell,Urine 7 /hpf (0-4); Urobilinogen,Urine <2.0 mg/dL (<2.0); WBC,Urine 2 /hpf (0-5)
[2022-01-02 10:35] VITALS: BP 144/94; PULSE 75
== END 2022-01-02 10:37 | disposition home or self-care (01) ==
LOC: EC 07:42
DX: R10.11 Right upper quadrant pain (principal); F32.A Depression, unspecified; F41.9 Anxiety disorder, unspecified; F17.200 Nicotine dependence, unspecified, uncomplicated; F12.90 Cannabis use, unspecified, uncomplicated; Z88.5 Allergy status to narcotic agent; Z88.8 Allergy status to other drugs, medicaments and biological substances
CPT/HCPCS: 36415; 80053; 82150; 83605; 83690; 85025; 81001; 81025; 76705; 99284; 96374; J1885

== ENCOUNTER 2022-01-08 00:19 | Emergency (ER) | payer OTHER ==
[2022-01-08 00:54] VITALS: BP 124/80; PULSE 99; RESP 18; TEMP 98
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
== END 2022-01-08 02:16 | disposition home or self-care (01) ==
LOC: EC 00:19
DX: S40.022A Contusion of left upper arm, initial encounter (principal); F17.200 Nicotine dependence, unspecified, uncomplicated; Z88.5 Allergy status to narcotic agent; Z88.9 Allergy status to unspecified drugs, medicaments and biological substances; X58.XXXA Exposure to other specified factors, initial encounter
CPT/HCPCS: 99284

== ENCOUNTER → 2022-02-03 | Outpatient (CLI) | payer OTHER ==
--- NOTE | 2022-02-03 12:51 | MR ---
EXAMINATION TYPE: MR liver wo/w con DATE OF EXAM: 02/03/2022 COMPARISON: Most recent CT abdomen and pelvis January 01, [address] 2016. Recent limited abdomen ultrasound January 02, 2022. HISTORY: Lesion of the liver per order. Liver mass per patient. Recent abnormal ultrasound. CONTRAST: Standard multiplanar, multisequence MRI departmental protocol images were obtained without contrast a nd with 6 mL intravenous Gadavist gadolinium contrast. Imaging performed of the abdomen focusing on the liver. FINDINGS: Liver: Liver remains normal in size. No significant signal drop out identified. No concerning solid o r cystic masses present with particular attention to anterior aspect right hepatic lobe. There is pat ent and normal size main portal vein and central branching veins. There are patent hepatic veins drai laura into IVC. No adjacent ascites. Gallbladder appears within normal limits. There is no biliary dil atation noted. Area marked on ultrasound likely reflects focal intra-abdominal fat extending into the intralobar fissure. Other: Visualized lung bases are clear. The spleen, pancreas, and both adrenal glands appear within n ormal limits. There is no concerning renal mass or hydronephrosis seen bilaterally. No suspicious sma ll or large bowel dilatation. No intra-abdominal ascites. Visualized portion of the uterus is unremar kable. No AAA. Osseous structures are intact. IMPRESSION: No suspicious focal intrahepatic mass.
== END | disposition home or self-care (01) ==
LOC: RADMRIMAIN 08:59
PROVIDERS: ATTEND Internal Medicine Gastroenterology
DX: K76.9 Liver disease, unspecified (principal)
CPT/HCPCS: 74183; A9585

== ENCOUNTER 2022-07-21 14:45 | Emergency (ER) | payer OTHER ==
[2022-07-21 15:12] VITALS: RESP 18; TEMP 98.3
[2022-07-21 16:17] LABS: Appearance,Urine Turbid (Clear); Bilirubin,Urine Negative (Negative); Blood,Urine Large (Negative); Color,Urine Light Red; Glucose,Urine (UA) Negative (Negative); Ketones,Urine Negative (Negative); Leukocyte Esterase,Urine Large (Negative); Mucus,Urine Occasional /hpf; Nitrite,Urine Positive (Negative); Protein,Urine 2+ (Negative); RBC,Urine >182 /hpf (0-5); Specific Gravity,Urine 1.021 (1.001-1.035); Squamous Epithelial Cell,Urine 1 /hpf (0-4); Urobilinogen,Urine <2.0 mg/dL (<2.0); WBC,Urine 56 /hpf (0-5)
[2022-07-21] MEDS ORDERED: ONDANSETRON 4 MG/2 ML VIAL IVP STA (16:27)
[2022-07-21] MEDS ORDERED: SODIUM CHLORIDE 0.9% 1,000 ML IV ONE (16:27)
[2022-07-21] MEDS ORDERED: KETOROLAC 15 MG/ML 1 ML VIAL IVP STA (16:27)
[2022-07-21] MEDS ORDERED: cefTRIAXone IN SWFI 1,000 MG/10 ML SYRINGE IVP STA (16:37)
--- NOTE | 2022-07-21 16:52 | ED ---
Female Urogenital HPI - General Chief complaint: Urogenital Stated complaint: Bladder pain,Back pain Time Seen by Provider: 07/21/22 16:11 Source: patient Mode of arrival: ambulatory Limitations: no limitations - History of Present Illness Initial comments: Patient is a 31-year-old female presenting with chief complaint of left-sided flank pain. Patient started 0300 today. Patient states "I think I have a kidney stone". She admits to pain and pressure over the bladder. She denies any nausea or vomiting. No other abdominal pain. No chest pain or difficulty breathing. No fever or chills. No dysuria, does state that her urine appears very dark. She admits to urgency and frequency. - Related Data Previous Rx's Medication Instructions Recorded Ciprofloxacin HCl 500 mg PO BID 7 Days #14 tablet 07/21/22 Allergies Allergy/AdvReac Type Severity Reaction Status Date / Time codeine Allergy Rash/Hives Verified 07/21/22 20:04 tramadol AdvReac Severe Unknown Verified 07/21/22 20:04 prochlorperazine edisylate AdvReac Intermediate IRRITABILIT Verified 07/21/22 20:04 [From Compazine] Y prochlorperazine maleate AdvReac Intermediate IRRITABILIT Verified 07/21/22 20:04 [From Compazine] Y Review of Systems ROS Statement: Those systems with pertinent positive or pertinent negative responses have been documented in the HPI. ROS Other: All systems not noted in ROS Statement are negative. Past Medical History Past Medical History: Seizure Disorder Additional Past Medical History / Comment(s): Patient has been seizure free for 3 years, kidney infection History of Any Multi-Drug Resistant Organisms: None Reported Past Surgical History: Appendectomy Past Anesthesia/Blood Transfusion Reactions: No Reported Reaction Past Psychological History: Anxiety, Depression, PTSD Smoking Status: Current every day smoker, Vaper Past Alcohol Use History: Rare Past Drug Use History: Marijuana - Past Family History Brother(s) Additional Family Medical History / Comment(s): Cystic fibrosis General Exam Limitations: no limitations General appearance: alert, in no apparent distress Head exam: Present: atraumatic, normocephalic, normal inspection Eye exam: Present: normal appearance Neck exam: Present: normal inspection, full ROM Respiratory exam: Present: normal lung sounds bilaterally. Absent: respiratory distress, wheezes, rales, rhonchi, stridor Cardiovascular Exam: Present: regular rate, normal rhythm, normal heart sounds. Absent: systolic murmur, diastolic murmur, rubs, gallop, clicks GI/Abdominal exam: Present: soft, tenderness (L side and over bladder). Absent: distended, guarding, rebound, rigid Back exam: Present: normal inspection. Absent: CVA tenderness (R), CVA tenderness (L) Neurological exam: Present: alert, oriented X3, CN II-XII intact Psychiatric exam: Present: normal affect, normal mood Skin exam: Present: warm, dry, intact, normal color. Absent: rash Course Vital Signs 07/21/22 07/21/22 15:08 18:35 Temperature 98.3 F Pulse Rate 87 89 Respiratory 18 Rate Blood Pressure 158/93 143/99 O2 Sat by Pulse 98 99 Oximetry Medical Decision Making - Medical Decision Making Was pt. sent in by a medical professional or institution (, PA, CONTRACT POST OFFICE CLERK, urgent care, hospital, or skilled nursing...) When possible be specific @ -No Did you speak to anyone other than the patient for history (EMS, parent, family, police, friend...)? What history was obtained from this source @ -No Did you review nursing and triage notes (agree or disagree)? Why? @ -I reviewed and agree with nursing and triage notes Were old charts reviewed (outside hosp., previous admission, EMS record, old EKG, old radiological studies, urgent care reports/EKG's, skilled nursing records)? Report findings @ -No old charts were reviewed Differential Diagnosis (chest pain, altered mental status, abdominal pain women, abdominal pain men, vaginal bleeding, weakness, fever, dyspnea, syncope, headache, dizziness, GI bleed, back pain, seizure, CVA, palpatations, mental health)? @ -Differential includes pyelonephritis, kidney stone, musculoskeletal back pain, UTI EKG interpreted by me (3pts min.). @ -As above X-rays interpreted by me (1pt min.). @ -None done CT interpreted by me (1pt min.). @ -CT shows mild indistinctness to the left upper collecting system which can correlate with the clinical diagnosis of left pyelitis recently passed calcification. No abnormal left renal findings or abnormal fluid collections. U/S interpreted by me (1pt. min.). @ -No acute process What testing was considered but not performed or refused? (CT, X-rays, U/S, labs)? Why? @ -None What meds were considered but not given or refused? Why? @ -None Did you discuss the management of the patient with other professionals (professionals i.e. , PA, CONTRACT POST OFFICE CLERK, lab, RT, psych nurse, social service technician, licensed nursing assistant, teacher, training systems officer, case consultant)? Give summary @ -No Was smoking cessation discussed for >3mins.? @ -No Was critical care preformed (if so, how long)? @ -No Were there social determinants of health that impacted care today? How? ( Homelessness, low income, unemployed, alcoholism, drug addiction, transportation, low edu. Level, literacy, decrease access to med. care, long term, rehab)? @ -No Was there de-escalation of care discussed even if they declined (Discuss DNR or withdrawal of care, Hospice)? DNR status @ -No What co-morbidities impacted this encounter? (DM, HTN, Smoking, COPD, CAD, Cancer, CVA, ARF, Chemo, Hep., AIDS, mental health diagnosis, sleep apnea, morbid obesity)? @ -None Was patient admitted / discharged? Hospital course, mention meds given and route, prescriptions, significant lab abnormalities, going to OR and other pertinent info. @ -Patient is a 31-year-old female presenting with chief complaint of left flank pain and pain over the bladder. On physical examination there is tenderness to the lower abdomen and some discomfort with checking for CVA tenderness. Urine shows evidence of UTI, there is large blood with greater than 182 urine RBCs, concern for septic stone. Urine hCG is negative. CT shows indistinctness to the left upper clearing system. No distinct stone is seen. Patient may have recently passed a stone. Patient is requesting to go home today, vital signs are WNL and pain is well controlled. She is given a dose of Rocephin here in the ER and will be prescribed Cipro 500 mg twice a day for 7 days. Follow-up with PCP. Report back to ER with any new or worsening symptoms. Discussed return parameters and answered all questions. Patient conveyed verbal understanding and agreed to the plan. I discussed this case in detail with my attending Dr. Meng Undiagnosed new problem with uncertain prognosis? @ -No Drug Therapy requiring intensive monitoring for toxicity (Heparin, Nitro, Insulin, Cardizem)? @ -No Were any procedures done? @ -No Diagnosis/symptom? @ -Pyelonephritis Acute, or Chronic, or Acute on Chronic? @ -Acute Uncomplicated (without systemic symptoms) or Complicated (systemic symptoms)? @ -Uncomplicated Side effects of treatment? @ -No Exacerbation, Progression, or Severe Exacerbation? @ -No - Lab Data Result diagrams: 07/21/22 16:57 07/21/22 16:57 Lab Results 07/21/22 07/21/22 07/21/22 Range/Units 15:32 16:45 16:57 WBC 21.0 H (3.8-10.6) k/uL RBC 3.94 (3.80-5.40) m/uL Hgb 13.2 (11.4-16.0) gm/dL Hct 39.0 (34.0-46.0) % MCV 98.9 (80.0-100.0) fL MCH 33.4 (25.0-35.0) pg MCHC 33.8 (31.0-37.0) g/dL RDW 11.8 (11.5-15.5) % Plt Count 358 (150-450) k/uL MPV 7.9 Neutrophils % 87 % Lymphocytes % 7 % Monocytes % 5 % Eosinophils % 0 % Basophils % 0 % Neutrophils # 18.1 H (1.3-7.7) k/uL Lymphocytes # 1.5 (1.0-4.8) k/uL Monocytes # 1.1 H (0-1.0) k/uL Eosinophils # 0.1 (0-0.7) k/uL Basophils # 0.0 (0-0.2) k/uL Sodium (137-145) mmol/L Potassium (3.5-5.1) mmol/L Chloride (98-107) mmol/L Carbon Dioxide (22-30) mmol/L Anion Gap mmol/L BUN (7-17) mg/dL Creatinine (0.52-1.04) mg/dL Est GFR (CKD-EPI)AfAm (>60 ml/min/1.73 sqM) Est GFR (CKD-EPI)NonAf (>60 ml/min/1.73 sqM) Glucose (74-99) mg/dL Plasma Lactic Acid Ike (0.7-2.0) mmol/L Calcium (8.4-10.2) mg/dL Total Bilirubin (0.2-1.3) mg/dL AST (14-36) U/L ALT (4-34) U/L Alkaline Phosphatase (38-126) U/L Total Protein (6.3-8.2) g/dL Albumin (3.5-5.0) g/dL Urine Color Light Red Urine Appearance Turbid H (Clear) Urine pH 6.0 (5.0-8.0) Ur Specific [place] 1.021 (1.001-1.035) Urine Protein 2+ H (Negative) Urine Glucose (UA) Negative (Negative) Urine Ketones Negative (Negative) Urine Blood Large H (Negative) Urine Nitrite Positive H (Negative) Urine Bilirubin Negative (Negative) Urine Urobilinogen <2.0 (<2.0) mg/dL Ur Leukocyte Esterase Large H (Negative) Urine RBC >182 H (0-5) /hpf Urine WBC 56 H (0-5) /hpf Ur Squamous Epith Cells 1 (0-4) /hpf Urine Mucus Occasional H (None) /hpf Urine HCG, Qual Not Detected (Not Detectd) 07/21/22 07/21/22 Range/Units 16:57 16:57 WBC (3.8-10.6) k/uL RBC (3.80-5.40) m/uL Hgb (11.4-16.0) gm/dL Hct (34.0-46.0) % MCV (80.0-100.0) fL MCH (25.0-35.0) pg MCHC (31.0-37.0) g/dL RDW (11.5-15.5) % Plt Count (150-450) k/uL MPV Neutrophils % % Lymphocytes % % Monocytes % % Eosinophils % % Basophils % % Neutrophils # (1.3-7.7) k/uL Lymphocytes # (1.0-4.8) k/uL Monocytes # (0-1.0) k/uL Eosinophils # (0-0.7) k/uL Basophils # (0-0.2) k/uL Sodium 136 L (137-145) mmol/L Potassium 3.5 (3.5-5.1) mmol/L Chloride 104 (98-107) mmol/L Carbon Dioxide 23 (22-30) mmol/L Anion Gap 9 mmol/L BUN 8 (7-17) mg/dL Creatinine 0.60 (0.52-1.04) mg/dL Est GFR (CKD-EPI)AfAm >90 (>60 ml/min/1.73 sqM) Est GFR (CKD-EPI)NonAf >90 (>60 ml/min/1.73 sqM) Glucose 95 (74-99) mg/dL Plasma Lactic Acid Ike 1.2 (0.7-2.0) mmol/L Calcium 9.6 (8.4-10.2) mg/dL Total Bilirubin 1.1 (0.2-1.3) mg/dL AST 24 (14-36) U/L ALT 17 (4-34) U/L Alkaline Phosphatase 82 (38-126) U/L Total Protein 8.1 (6.3-8.2) g/dL Albumin 4.9 (3.5-5.0) g/dL Urine Color Urine Appearance (Clear) Urine pH (5.0-8.0) Ur Specific [place] (1.001-1.035) Urine Protein (Negative) Urine Glucose (UA) (Negative) Urine Ketones (Negative) Urine Blood (Negative) Urine Nitrite (Negative) Urine Bilirubin (Negative) Urine Urobilinogen (<2.0) mg/dL Ur Leukocyte Esterase (Negative) Urine RBC (0-5) /hpf Urine WBC (0-5) /hpf Ur Squamous Epith Cells (0-4) /hpf Urine Mucus (None) /hpf Urine HCG, Qual (Not Detectd) Disposition Clinical Impression: Pyelonephritis Disposition: HOME SELF-CARE Condition: Fair Instructions (If sedation given, give patient instructions): Urinary Tract Infection in Women (ED), Kidney Infection (ED) Additional Instructions: Follow-up with PCP. Report back to ER with any new or worsening symptoms. Take medication as prescribed. Prescriptions: Ciprofloxacin HCl 500 mg PO BID 7 Days #14 tablet Is patient prescribed a controlled substance at d/c from ED?: No Referrals: Vannessa Echavarria MD [Primary Care Provider] - 1-2 days Time of Disposition: 19:52
--- NOTE | 2022-07-21 17:17 | US ---
EXAMINATION TYPE: US kidneys/renal and bladder DATE OF EXAM: 07/21/2022 COMPARISON: 01/02/2022 CLINICAL HISTORY: L flank pain. EXAM MEASUREMENTS: Right Kidney: 10.3 x 3.7 x 4.9 cm Left Kidney: 11.0 x 5.1 x 4.7 cm Right Kidney: wnl Left Kidney: wnl Bladder: wnl Bilateral Jets seen: Left jet visualized. Right jet not visualized. IMPRESSION: No acute process.
[2022-07-21 17:18] LABS: Basophils % (A) 0 %; Eosinophils # (A) 0.1 k/uL (0-0.7); Eosinophils % (A) 0 %; HGB 13.2 gm/dL (11.4-16.0); Lymphocytes # (A) 1.5 k/uL (1.0-4.8); Lymphocytes % (A) 7 %; MCH 33.4 pg (25.0-35.0); MCHC 33.8 g/dL (31.0-37.0); MCV 98.9 fL (80.0-100.0); Mean Platelet Volume 7.9; Monocytes # (A) 1.1 k/uL (0-1.0); Monocytes % (A) 5 %; Neutrophils # (A) 18.1 k/uL (1.3-7.7); Neutrophils % (A) 87 %; Platelet Count 358 k/uL (150-450); RBC 3.94 m/uL (3.80-5.40); RDW 11.8 % (11.5-15.5)
[2022-07-21 17:32] LABS: ALT 17 U/L (4-34); AST 24 U/L (14-36); African American GFR (CKD) >90 (>60 ml/min/1.73 sqM); Albumin 4.9 g/dL (3.5-5.0); Alkaline Phosphatase 82 U/L (38-126); Anion Gap 9 mmol/L; Blood Urea Nitrogen 8 mg/dL (7-17); Calcium 9.6 mg/dL (8.4-10.2); Carbon Dioxide 23 mmol/L (22-30); Chloride 104 mmol/L (98-107); Glucose 95 mg/dL (74-99); Non-African American GFR(CKD) >90 (>60 ml/min/1.73 sqM); Potassium 3.5 mmol/L (3.5-5.1); Sodium 136 mmol/L (137-145); Total Bilirubin 1.1 mg/dL (0.2-1.3); Total Protein 8.1 g/dL (6.3-8.2)
[2022-07-21] MEDS ORDERED: HYDROmorphone 1 MG/ML 1 ML SYRINGE IVP STA (18:07)
[2022-07-21 18:38] VITALS: BP 143/99; PULSE 89
--- NOTE | 2022-07-21 19:28 | CT ---
EXAMINATION TYPE: CT abdomen pelvis wo con DATE OF EXAM: 07/21/2022 HISTORY: PT PRESENTS WITH BLADDER AND FLANK PAIN. CT DLP: 398.2 mGycm. Automated Exposure Control for Dose Reduction was Utilized. TECHNIQUE: Department protocol COMPARISON: 01/01/2021 FINDINGS: LUNG BASES: No significant abnormality is appreciated. LIVER/GB: No significant abnormality is appreciated. PANCREAS: No significant abnormality is seen. SPLEEN: No significant abnormality is seen. ADRENALS: No significant abnormality is seen. KIDNEYS /URETERS/ URINARY BLADDER: On the right there is no hydronephrosis or hydroureter. No renal calcifications or definite ureteral calcifications, though right sided phleboliths are noted. On the left there is no hydronephrosis or hydroureter, but there is mild indistinctness of the left u pper collecting system, which can correlate with a clinical diagnosis of left pyelitis, recently pass ed calcification, or distal calcification which cannot be delineated from the visualized left-sided p hleboliths. No abnormal left renal findings, or abnormal fluid collections. Urinary bladder unremarkable. BOWEL: No significant abnormality is seen. PELVIC VISCERA: No gross abnormality seen. LYMPH NODES: No greater than 1cm abdominal or pelvic lymph nodes are appreciated. OSSEOUS STRUCTURES: No significant abnormality is seen. Study limitation: Without IV contrast there is limited CT sensitivity, particularly for focal viscera l lesions, intraluminal lesions, and vascular pathology. IMPRESSION: Mild indistinctness to the left upper collecting system; no other acute findings.
== END 2022-07-21 20:23 | disposition home or self-care (01) ==
LOC: EC 14:45
DX: N12 Tubulo-interstitial nephritis, not specified as acute or chronic (principal); F41.9 Anxiety disorder, unspecified; F32.A Depression, unspecified; F17.290 Nicotine dependence, other tobacco product, uncomplicated; F12.90 Cannabis use, unspecified, uncomplicated; Z88.5 Allergy status to narcotic agent; Z88.8 Allergy status to other drugs, medicaments and biological substances
CPT/HCPCS: 36415; 80053; 83605; 85025; 81001; 81025; 87086; 76770; 74176; 99284; 96374; 96375 ×3; 96361 ×2; J2405; J0696; J1170; J1885

== ENCOUNTER 2024-01-02 23:28 | Observation (INO) | payer OTHER ==
[2024-01-02] MEDS: SODIUM CHLORIDE 0.9% 1,000 ML IV STA (23:56)
[2024-01-03 00:09] LABS: Basophils % (A) 1 %; Eosinophils # (A) 0.1 k/uL (0-0.7); Eosinophils % (A) 2 %; HCT 38.4 % (34.0-46.0); HGB 12.7 gm/dL (11.4-16.0); Lymphocytes # (A) 3.6 k/uL (1.0-4.8); Lymphocytes % (A) 45 %; MCH 32.6 pg (25.0-35.0); MCV 98.9 fL (80.0-100.0); Mean Platelet Volume 8.5; Monocytes # (A) 0.5 k/uL (0-1.0); Monocytes % (A) 6 %; Neutrophils # (A) 3.5 k/uL (1.3-7.7); Neutrophils % (A) 44 %; Platelet Count 301 k/uL (150-450); RBC 3.88 m/uL (3.80-5.40); RDW 12.1 % (11.5-15.5)
--- NOTE | 2024-01-03 00:09 | ED ---
Female Urogenital HPI - General Source: patient, EMS, RN notes reviewed Mode of arrival: EMS Limitations: no limitations - History of Present Illness Last Menstrual Period: 12/15/23 <Danisha Spicer - Last Filed: 01/03/24 03:50> <Aamir Kline - Last Filed: 01/03/24 04:45> - General Chief complaint: Vaginal Bleeding Stated complaint: Hemmorage Time Seen by Provider: 01/03/24 00:08 - History of Present Illness Initial comments: 33-year-old female presented to the ER via EMS with a chief complaint of vaginal bleeding. Patient states she was having vaginal intercourse and felt a tear. She states she has been heavily bleeding since intercourse and passing clots. She does report she had a significant tear during childbirth approximately 14 years ago. She denies any blood thinner use. She was reporting mild abdominal cramping. Denies any fevers, chills, nausea or vomiting. She does report she is feeling mild lightheadedness due to the bleeding. No chest pain or shortness of breath. (Danisha Spicer) - Related Data Previous Rx's Medication Instructions Recorded Ciprofloxacin HCl 500 mg PO BID 7 Days #14 tablet 07/21/22 Allergies Allergy/AdvReac Type Severity Reaction Status Date / Time codeine Allergy Rash/Hives Verified 01/02/24 23:32 tramadol AdvReac Severe Unknown Verified 01/02/24 23:32 prochlorperazine edisylate AdvReac Intermediate IRRITABILIT Verified 01/02/24 23:32 [From Compazine] Y prochlorperazine maleate AdvReac Intermediate IRRITABILIT Verified 01/02/24 23:32 [From Compazine] Y Review of Systems ROS Other: All systems not noted in ROS Statement are negative. <Danisha Spicer - Last Filed: 01/03/24 03:50> ROS Other: All systems not noted in ROS Statement are negative. <Aamir Kline - Last Filed: 01/03/24 04:45> ROS Statement: Those systems with pertinent positive or pertinent negative responses have been documented in the HPI. Past Medical History Past Medical History: Seizure Disorder Additional Past Medical History / Comment(s): Patient has been seizure free for 3 years, kidney infection History of Any Multi-Drug Resistant Organisms: None Reported Past Surgical History: Appendectomy Past Anesthesia/Blood Transfusion Reactions: No Reported Reaction Past Psychological History: Anxiety, Depression, PTSD Smoking Status: Current every day smoker, Vaper Past Alcohol Use History: Rare Past Drug Use History: Marijuana - Past Family History Brother(s) Additional Family Medical History / Comment(s): Cystic fibrosis <Danisha Spicer - Last Filed: 01/03/24 03:50> General Exam Limitations: no limitations General appearance: alert, in no apparent distress Respiratory exam: Present: normal lung sounds bilaterally. Absent: respiratory distress, wheezes, rales, rhonchi, stridor Cardiovascular Exam: Present: normal rhythm, tachycardia, normal heart sounds GI/Abdominal exam: Present: soft, tenderness (Mild tenderness to suprapubic region and), normal bowel sounds Speculum exam: Present: vaginal bleeding (Significant with clots) Neurological exam: Present: alert, oriented X3, CN II-XII intact Psychiatric exam: Present: normal affect, normal mood, anxious Skin exam: Present: pallor (Mild) <Danisha Spicer - Last Filed: 01/03/24 03:50> Course <Danisha Spicer - Last Filed: 01/03/24 03:50> Vital Signs 01/02/24 01/02/24 01/03/24 23:30 23:55 02:32 Temperature 98.7 F Pulse Rate 102 H 116 H 116 H Respiratory 16 20 Rate Blood Pressure 158/108 158/56 143/91 O2 Sat by Pulse 98 98 Oximetry - Reevaluation(s) Reevaluation #1: 01/03/24 03:00 Case discussed with on-call EXECUTIVE RECEPTIONIST, Dr. Yanez who advised on admission. (Danisha Spicer) Medical Decision Making - Lab Data Result diagrams: 01/02/24 23:53 01/02/24 23:53 - Radiology Data Radiology results: report reviewed, image reviewed <Danisha Spicer - Last Filed: 01/03/24 03:50> - Lab Data Result diagrams: 01/03/24 03:34 01/02/24 23:53 <Aamir Kline - Last Filed: 01/03/24 04:45> - Medical Decision Making Was pt. sent in by a medical professional or institution (, PA, CREDIT AND COLLECTION MANAGER, urgent care, hospital, or longterm...) When possible be specific @ -No Did you speak to anyone other than the patient for history (EMS, parent, family, police, friend...)? What history was obtained from this source @ -No Did you review nursing and triage notes (agree or disagree)? Why? @ -I reviewed and agree with nursing and triage notes Were old charts reviewed (outside hosp., previous admission, EMS record, old EKG, old radiological studies, urgent care reports/EKG's, longterm records)? Report findings @ -No old charts were reviewed Differential Diagnosis (chest pain, altered mental status, abdominal pain women, abdominal pain men, vaginal bleeding, weakness, fever, dyspnea, syncope, headache, dizziness, GI bleed, back pain, seizure, CVA, palpatations, mental health, musculoskeletal)? @ -Differential Vaginal Bleeding:Spontaneous , threatened , molar , ectopic , bloody show, incompetent cervix, abruptiopla centa, placenta previa, uterine rupture, dysfunctional uterine bleeding, hemorrhage, uterine fibroids, this is not meant to be an all- inclusive list. EKG interpreted by me (3pts min.). @ -None X-rays interpreted by me (1pt min.). @ -None done CT interpreted by me (1pt min.). @ -CT abdomen pelvis remarkable for a region of the vaginal fornix there is abnormal fluid distention and a dome-shaped configuration measuring 6.2 x 7.2 x 3 cm with soft tissue material filling and distending the adjacent vagina measuring up to 4.1 x 6.2 cm in diameter. Suspect vaginal distention with solid and liquefying hemorrhagic components. The presumed uterus proper is normal in caliber with an IUD in place. No evidence of abnormality dilated endometrial canal or fluid in the endometrium. U/S interpreted by me (1pt. min.). @ -Transabdominal pelvic ultrasound showing a suspect low-lying fibroid versus cervical mass/lesion. What testing was considered but not performed or refused? (CT, X-rays, U/S, labs)? Why? @ -None What meds were considered but not given or refused? Why? @ -None Did you discuss the management of the patient with other professionals (professionals i.e. , PA, CREDIT AND COLLECTION MANAGER, lab, RT, psych nurse, psychiatric social worker supervisor, metal buildings assembler, teacher, chief financial officer, case worker)? Give summary @ -Yes, case discussed with on-call EXECUTIVE RECEPTIONIST, Dr. Hughess, who advised on admission. Was smoking cessation discussed for >3mins.? @ -No Was critical care preformed (if so, how long)? @ -No Were there social determinants of health that impacted care today? How? (Homelessness, low income, unemployed, alcoholism, drug addiction, transportation, low edu. Level, literacy, decrease access to med. care, longterm, rehab)? @ -No Was there de-escalation of care discussed even if they declined (Discuss DNR or withdrawal of care, Hospice)? DNR status @ -No What co-morbidities impacted this encounter? (DM, HTN, Smoking, COPD, CAD, Cancer, CVA, ARF, Chemo, Hep., AIDS, mental health diagnosis, sleep apnea, morbid obesity)? @ -Uterine fibroids Was patient admitted / discharged? Hospital course, mention meds given and route, prescriptions, significant lab abnormalities, going to OR and other pertinent info. @ -Admitted. 33-year-old female presenting to the ER with a chief complaint of significant vaginal bleeding after intercourse. History and physical exam completed. Vitals stable. Exam remarkable for significant bleeding from vagina with clots. Mild suprapubic abdominal tenderness. There is no tear in the perineum. Speculum exam unable to be performed due to the amount of bleeding. Laboratory studies obtained remarkable for a hemoglobin stable at 12.7, coags normal, hCG less than 2.4. Patient mildly dehydrated with a potassium 3.2, chloride 108, carbon dioxide 21. Transabdominal pelvic ultrasound obtained first showing a suspected low-lying fibroid versus cervical mass/lesion. Due to amount of bleeding CT abdomen pelvis was performed. CT remarkable for a region of the vaginal fornix there is abnormal fluid distention and a dome-shaped configuration measuring 6.2 x 7.2 x 3 cm with soft tissue material filling and distending the adjacent vagina measuring up to 4.1 x 6.2 cm in diameter. Suspect vaginal distention with solid and liquefying hemorrhagic components. The presumed uterus proper is normal in caliber with an IUD in place. No evidence of abnormality dilated endometrial canal or fluid in the endometrium. Patient received 2 L IV fluids in the ER. I discussed this case with on-call EXECUTIVE RECEPTIONIST, Dr. Yanez. He advised on admission and TXA as patient is currently stable. Woods catheter placed due to urinary retention. Urine analysis pending. Patient agreeable for admission. Patient admitted in stable condition to Dr. Yanez. Case discussed with ED attending, Dr. Kline. Undiagnosed new problem with uncertain prognosis? @ -Yes Drug Therapy requiring intensive monitoring for toxicity (Heparin, Nitro, Insulin, Cardizem)? @ -No Were any procedures done? @ -No Diagnosis/symptom? @ -Vaginal bleeding Acute, or Chronic, or Acute on Chronic? @ -Acute Uncomplicated (without systemic symptoms) or Complicated (systemic symptoms)? @ -Complicated Side effects of treatment? @ -No Exacerbation, Progression, or Severe Exacerbation? @ -No Poses a threat to life or bodily function? How? (Chest pain, [place], [place], pneumonia, PE, COPD, DKA, ARF, appy, cholecystitis, CVA, Diverticulitis, Homicidal, Suicidal, threat to staff... and all critical care pts) @ -Yes, hemorrhaging can lead to hypovolemic shock which is life threatening. (Danisha Spicer) Patient pending admission. We did order repeat CBC to evaluate for any significant drop in hemoglobin. Approximately 4 hours after the initial hemoglobin, patient did have a drop from 12.7-10.1. I reevaluated the patient. She remains hemodynamically stable and feels that the vaginal bleeding has subsided mostly. Does not feel it bleeding nearly as much. The TXA seems to be a working to some effect. I spoke with Dr. Yanez, the admitting EXECUTIVE RECEPTIONIST regarding the drop in hemoglobin as well as reevaluation and he was still in agreement with the provided care and admission. She will be reevaluated by him in the morning. We both suspect some form of vaginal trauma as the source of the bleed. (Aamir Kline) - Lab Data Lab Results 01/02/24 01/02/24 01/02/24 Range/Units 23:53 23:53 23:53 WBC 8.0 (3.8-10.6) k/uL RBC 3.88 (3.80-5.40) m/uL Hgb 12.7 (11.4-16.0) gm/dL Hct 38.4 (34.0-46.0) % MCV 98.9 (80.0-100.0) fL MCH 32.6 (25.0-35.0) pg MCHC 33.0 (31.0-37.0) g/dL RDW 12.1 (11.5-15.5) % Plt Count 301 (150-450) k/uL MPV 8.5 Neutrophils % 44 % Lymphocytes % 45 % Monocytes % 6 % Eosinophils % 2 % Basophils % 1 % Neutrophils # 3.5 (1.3-7.7) k/uL Lymphocytes # 3.6 (1.0-4.8) k/uL Monocytes # 0.5 (0-1.0) k/uL Eosinophils # 0.1 (0-0.7) k/uL Basophils # 0.0 (0-0.2) k/uL PT 11.1 (10.0-12.5) sec INR 1.0 (<1.2) APTT 26.0 (22.0-30.0) sec Sodium 139 (137-145) mmol/L Potassium 3.2 L (3.5-5.1) mmol/L Chloride 108 H (98-107) mmol/L Carbon Dioxide 21 L (22-30) mmol/L Anion Gap 10 mmol/L BUN 6 L (7-17) mg/dL Creatinine 0.66 (0.52-1.04) mg/dL Est GFR (CKD-EPI)AfAm >90 (>60 ml/min/1.73 sqM) Est GFR (CKD-EPI)NonAf >90 (>60 ml/min/1.73 sqM) Glucose 125 H (74-99) mg/dL Calcium 9.2 (8.4-10.2) mg/dL Total Bilirubin 0.5 (0.2-1.3) mg/dL AST 30 (14-36) U/L ALT 15 (4-34) U/L Alkaline Phosphatase 69 (38-126) U/L Total Protein 7.4 (6.3-8.2) g/dL Albumin 4.6 (3.5-5.0) g/dL HCG, Quant mIU/mL 01/02/24 Range/Units 23:53 WBC (3.8-10.6) k/uL RBC (3.80-5.40) m/uL Hgb (11.4-16.0) gm/dL Hct (34.0-46.0) % MCV (80.0-100.0) fL MCH (25.0-35.0) pg MCHC (31.0-37.0) g/dL RDW (11.5-15.5) % Plt Count (150-450) k/uL MPV Neutrophils % % Lymphocytes % % Monocytes % % Eosinophils % % Basophils % % Neutrophils # (1.3-7.7) k/uL Lymphocytes # (1.0-4.8) k/uL Monocytes # (0-1.0) k/uL Eosinophils # (0-0.7) k/uL Basophils # (0-0.2) k/uL PT (10.0-12.5) sec INR (<1.2) APTT (22.0-30.0) sec Sodium (137-145) mmol/L Potassium (3.5-5.1) mmol/L Chloride (98-107) mmol/L Carbon Dioxide (22-30) mmol/L Anion Gap mmol/L BUN (7-17) mg/dL Creatinine (0.52-1.04) mg/dL Est GFR (CKD-EPI)AfAm (>60 ml/min/1.73 sqM) Est GFR (CKD-EPI)NonAf (>60 ml/min/1.73 sqM) Glucose (74-99) mg/dL Calcium (8.4-10.2) mg/dL Total Bilirubin (0.2-1.3) mg/dL AST (14-36) U/L ALT (4-34) U/L Alkaline Phosphatase (38-126) U/L Total Protein (6.3-8.2) g/dL Albumin (3.5-5.0) g/dL HCG, Quant <2.4 mIU/mL Disposition Time of Disposition: 03:08 <Danisha Spicer - Last Filed: 01/03/24 03:50> <Aamir Kline - Last Filed: 01/03/24 04:45> Clinical Impression: Vaginal bleeding Disposition: ADMITTED IP TO THIS HOSP Condition: Stable
[2024-01-03 00:24] LABS: ALT 15 U/L (4-34); AST 30 U/L (14-36); African American GFR (CKD) >90 (>60 ml/min/1.73 sqM); Albumin 4.6 g/dL (3.5-5.0); Alkaline Phosphatase 69 U/L (38-126); Anion Gap 10 mmol/L; Blood Urea Nitrogen 6 mg/dL (7-17); Calcium 9.2 mg/dL (8.4-10.2); Carbon Dioxide 21 mmol/L (22-30); Chloride 108 mmol/L (98-107); Glucose 125 mg/dL (74-99); Non-African American GFR(CKD) >90 (>60 ml/min/1.73 sqM); Potassium 3.2 mmol/L (3.5-5.1); Sodium 139 mmol/L (137-145); Total Bilirubin 0.5 mg/dL (0.2-1.3); Total Protein 7.4 g/dL (6.3-8.2)
[2024-01-03 00:46] LABS: Prothrombin Time 11.1 sec (10.0-12.5)
--- NOTE | 2024-01-03 01:00 | US ---
EXAMINATION TYPE: US pelvic complete DATE OF EXAM: 01/03/2024 COMPARISON: CT abdomen and pelvis July 21, 2022 CLINICAL INDICATION: Female, 33 years old with history of vaginal bleeding; patient has HEAVY vaginal bleeding. States LMP was end november. Has IUD . Patient does not want TV due to heavy bleeding TECHNIQUE: Transabdominal (TA). Transabdominal sonographic images of the pelvis were acquired. Date of LMP: End november EXAM MEASUREMENTS: Uterus: 9.5 x 4.0 x 4.1cm cm Endometrial Stripe: Unable to visualize due to IUD Right Ovary: 1.9 x 1.7 cm Left Ovary: 2.3 x 1.7 x 1.7 cm Slightly limited by patient movement 1. Uterus: Anteverted There is a 8.3 x 5.4 x 7.1cm echogenic area seen within the cervix/ vaginal region. 2. Endometrium: IUD appears within the right location 3. Right Ovary: wnl as best seen 4. Left Ovary: wnl as best seen Spectral, color and waveform doppler imaging shows good arterial and venous flow within the ovaries . 5. Bilateral Adnexa: wnl 6. Posterior cul-de-sac: Small amount of free fluid seen Slightly suboptimal study without transvaginal investigation. Anteverted uterus with central metallic IUD. Hyperechoic prominence of the lower uterine segment/vagina noted. Small amount of free fluid in pelvic cul-de-sac is nonspecific finding. Symmetric normal size ovaries. IMPRESSION: Suspect low-lying fibroid versus cervical mass/lesion. MRI follow-up may be beneficial if felt clinically warranted
--- NOTE | 2024-01-03 02:17 | CT ---
EXAM: CT Abdomen and Pelvis With Intravenous Contrast CLINICAL HISTORY: Vaginal bleeding TECHNIQUE: Axial computed tomography images of the abdomen and pelvis with intravenous contrast. CTDI is 13.2 mGy and DLP is 768.1 mGy-cm. This CT exam was performed using one or more of the following dose reduction techniques: automated exposure control, adjustment of the mA and/or kV according to patient size, and/or use of iterative reconstruction technique. COMPARISON: CT abdomen and pelvis without contrast dated 07/21/2022 FINDINGS: Limitations: There is respiratory artifact, which degrades image quality on multiple image slices. Lung bases: Unremarkable. No mass. No consolidation. ABDOMEN: Liver: Subtle fat infiltration adjacent to the falciform ligament. The liver is otherwise unremarkable. Gallbladder and bile ducts: Unremarkable. No calcified stones. No ductal dilation. Pancreas: Unremarkable. No mass. No ductal dilation. Spleen: Unremarkable. No splenomegaly. Adrenals: Unremarkable. No mass. Kidneys and ureters: The kidneys demonstrate normal enhancement. No hydronephrosis or nephrolithiasis. Delayed phase imaging demonstrates normal excreted contrast in the renal collecting systems and ureters. Stomach and bowel: No evidence for bowel obstruction. No asymmetric bowel mucosal abnormality. Mild stool burden. No diverticulitis. PELVIS: Appendix: No findings to suggest acute appendicitis. Bladder: The bladder is moderately distended without significant abnormality. Delayed phase imaging demonstrates normal excreted contrast in the bladder. Reproductive: In the region of the vaginal fornix, there is abnormal fluid distention in a dome-shaped configuration, measuring 6.2 x 7.2 x 3 cm with soft tissue material filling and distending the adjacent vagina, measuring up to 4.1 x 6.2 cm in diameter (series 203; images 45-67). The presumed uterus proper is normal in caliber with an IUD is identified centrally. No evidence for abnormally dilated endometrial canal or fluid in the endometrium. ABDOMEN and PELVIS: Intraperitoneal space: Unremarkable. No free air. No significant fluid collection. Bones/joints: No acute osseous abnormality. No abnormal alignment. Soft tissues: Unremarkable. Vasculature: Unremarkable. No abdominal aortic aneurysm. Lymph nodes: Unremarkable. No enlarged lymph nodes. IMPRESSION: In the region of the vaginal fornix, there is abnormal fluid distention in a dome-shaped configuration, measuring 6.2 x 7.2 x 3 cm with soft tissue material filling and distending the adjacent vagina, measuring up to 4.1 x 6.2 cm in diameter (series 203; images 45-67). Suspect vaginal distention with solid and liquefied hemorrhagic components. The presumed uterus proper is normal in caliber with an IUD is identified centrally. No evidence for abnormally dilated endometrial canal or fluid in the endometrium.
[2024-01-03] MEDS ORDERED: NALOXONE 0.4 MG/ML 1 ML VIAL IV PRN (02:28)
[2024-01-03] MEDS ORDERED: ACETAMINOPHEN TAB 325 MG TAB PO PRN (02:28)
[2024-01-03] MEDS ORDERED: TRANEXAMIC 1,000 MG/100ML-NACL 1,000 MG in SALINE 1 100ML.BAG IVPB ONE (02:45)
[2024-01-03] MEDS: TRANEXAMIC ACID 1,000 MG in SODIUM CHLORIDE 0.9% 250 ML IV ONE (02:52)
[2024-01-03] MEDS: TRANEXAMIC 1,000 MG/100ML-NACL 1,000 MG in SALINE 1 100ML.BAG IV STA (03:07)
[2024-01-03] MEDS: ONDANSETRON 4 MG/2 ML VIAL IVP PRN (03:25)
[2024-01-03 03:55] LABS: Basophils % (A) 0 %; Eosinophils # (A) 0.1 k/uL (0-0.7); Eosinophils % (A) 1 %; HCT 30.8 % (34.0-46.0); HGB 10.1 gm/dL (11.4-16.0); Lymphocytes # (A) 0.6 k/uL (1.0-4.8); Lymphocytes % (A) 7 %; MCHC 32.9 g/dL (31.0-37.0); MCV 100.4 fL (80.0-100.0); Mean Platelet Volume 8.7; Monocytes # (A) 0.4 k/uL (0-1.0); Monocytes % (A) 4 %; Neutrophils # (A) 7.5 k/uL (1.3-7.7); Neutrophils % (A) 88 %; Platelet Count 249 k/uL (150-450); RBC 3.07 m/uL (3.80-5.40); RDW 12.1 % (11.5-15.5); WBC 8.6 k/uL (3.8-10.6)
[2024-01-03 05:01] VITALS: RESP 16
[2024-01-03 08:31] VITALS: BP 118/80; PULSE 96; TEMP 98.9
[2024-01-03] MEDS ORDERED: HYDROmorphone 1 MG/ML 1 ML SYRINGE IVP STA (08:35)
[2024-01-03] MEDS ORDERED: LIDOCAINE 0.5% (PF) 5 MG/ML (50 ML SDV) SQ PRN (08:37)
--- NOTE | 2024-01-03 09:10 | P.HPOB ---
History of Present Illness H&P Date: 01/03/24 Chief Complaint: Acute vaginal bleeding The patient is a 33-year-old 1 para 1-0-0-1 who presented to the ER with acute vaginal bleeding starting during intercourse. She denies any trauma or anything else of concern but did present with heavy vaginal bleeding. Emergency room staff was unable to visualize any obvious lacerations. The patient was hemodynamically stable and therefore admitted for 23-hour observation. This morning, she is having no significant ongoing bleeding and has no signs or symptoms of orthostasis. Obstetrical history: 1 para 1-0-0-1 with 1 term vaginal delivery without complications. Method of contraception is a Kyleena IUD currently in place and visualized on imaging in the proper location. Gynecologic history: Reportedly unremarkable. Past Medical History Past Medical History: Seizure Disorder Additional Past Medical History / Comment(s): Patient has been seizure free for 3 years, kidney infection History of Any Multi-Drug Resistant Organisms: None Reported Past Surgical History: Appendectomy Past Anesthesia/Blood Transfusion Reactions: No Reported Reaction Past Psychological History: Anxiety, Depression, PTSD Smoking Status: Current every day smoker, Vaper Past Alcohol Use History: Rare Additional Past Alcohol Use History / Comment(s): is a smoker of less than a half a pack per day for 12 years. She does smoke marijuana occasionally. She drinks alcohol rarely. She lives at home with her fianc and children. Past Drug Use History: Marijuana Additional Drug Use History / Comment(s): Smokes marijuana occasionally. - Past Family History Brother(s) Additional Family Medical History / Comment(s): Cystic fibrosis Medications and Allergies Home Medications Medication Instructions Recorded Confirmed Type Ciprofloxacin HCl 500 mg PO BID 7 Days #14 tablet 07/21/22 Rx Allergies Allergy/AdvReac Type Severity Reaction Status Date / Time codeine Allergy Rash/Hives Verified 01/02/24 23:32 tramadol AdvReac Severe Unknown Verified 01/02/24 23:32 prochlorperazine edisylate AdvReac Intermediate IRRITABILIT Verified 01/02/24 23:32 [From Compazine] Y prochlorperazine maleate AdvReac Intermediate IRRITABILIT Verified 01/02/24 23:32 [From Compazine] Y Exam Vital Signs Temp Pulse Pulse Resp BP BP Pulse Ox 01/03/24 08:30 98.9 F 96 16 118/80 98 01/03/24 05:45 98.7 F 106 H 16 126/87 97 01/03/24 04:59 103 H 16 120/83 95 01/03/24 02:32 116 H 20 143/91 98 01/02/24 23:55 116 H 158/56 01/02/24 23:30 98.7 F 102 H 16 158/108 98 Intake and Output 01/02/24 01/03/24 01/03/24 22:59 06:59 14:59 Output Total 1428 83 Balance -1428 -83 Output: Urine 900 Output, Quantitative 528 83 Blood Loss Other: Weight 58.967 kg In general, this is a well-developed, well-nourished white female in no acute distress though she is nervous regarding her ongoing bleeding. Her heart has a regular rhythm and rate without murmur. Her lungs are clear to auscultation bilaterally in all rodriguez. Her abdomen is nondistended, soft, nontender, and without any masses. Her extremities are without any cyanosis, clubbing, or edema and are nontender to palpation bilaterally. Pelvic examination is carried out with the labor bed broken down using a standard speculum. There is a moderate amount of clot in the vaginal vault. I was unable to clearly visualize any obvious lacerations nor was able to palpate any. There was no active ongoing bleeding and the IUD strings were palpable in the cervix. The uterus is 4 to 5 weeks in size, anteverted, mobile, nontender, normal in shape. Results Result Diagrams: 01/03/24 03:34 01/02/24 23:53 Abnormal Lab Results - Last 24 Hours (Table) 01/02/24 01/03/24 Range/Units 23:53 03:34 RBC 3.07 L (3.80-5.40) m/uL Hgb 10.1 L (11.4-16.0) gm/dL Hct 30.8 L (34.0-46.0) % MCV 100.4 H (80.0-100.0) fL Lymphocytes # 0.6 L (1.0-4.8) k/uL Potassium 3.2 L (3.5-5.1) mmol/L Chloride 108 H (98-107) mmol/L Carbon Dioxide 21 L (22-30) mmol/L BUN 6 L (7-17) mg/dL Glucose 125 H (74-99) mg/dL Assessment and Plan (1) Vaginal bleeding Current Visit: Yes Status: Acute Code(s): N93.9 - ABNORMAL UTERINE AND VAGINAL BLEEDING, UNSPECIFIED SNOMED Code(s): 646958449 Plan: The bleeding appears to have resolved spontaneously. We will continue to observe the patient for the bulk of the day for any significantly increased bleeding. Should there be any, she will likely need to go to the operating room for exam under anesthesia as she is unable to relax enough to clearly visualize anything in the room. She will continue to be kept without anything by mouth for the time being. Should there be no significant increasing bleeding throughout the day, she will likely be discharged to remain without anything in the vagina for at least the next 2 to 4 weeks to allow healing and then follow- up as an outpatient for further examination. Patient is agreeable to the plan as it has been outlined above.
--- NOTE | 2024-01-03 13:28 | P.DS ---
Providers Date of admission: 01/03/24 02:29 Expected date of discharge: 01/03/24 Attending physician: Wan Yanez Primary care physician: Stated None - Discharge Diagnosis(es) (1) Vaginal bleeding Current Visit: Yes Status: Acute Hospital Course: The patient is a 33-year-old 1 para 1-0-0-1 who presented to the hospital with acute vaginal bleeding originating during intercourse. She was found to be bleeding significantly at that time though she was hemodynamically stable. She does have a Kyleena IUD in place for contraception. The emergency room was unable to visualize any evidence of a laceration but the presumptive diagnosis is vaginal laceration. She was admitted to de and had significant diminution of her bleeding through the night. That this morning I placed a speculum and evacuated clot from the vagina. I was unable to identify any obvious laceration but visualization was difficult secondary to patient fear and discomfort. There was no active ongoing bleeding. As a result, we opted to observe her for the remainder of the morning and early afternoon. She has had no further bleeding today of any significance and feels significantly better. She is tolerating a regular diet. She therefore has been deemed stable for discharge and will be discharged home to follow-up with me in 2 weeks time for recheck at which time I will attempt to do examination of the vagina with better visualization. She is to call or return for any significantly increased vaginal bleeding and she is absolutely abstain from anything in the vagina over the next 2 weeks time. She understood her instructions and agrees to follow-up as noted above. Procedures: 1. CT of the abdomen and pelvis #2. Pelvic ultrasound #3. 23-hour observation Patient Condition at Discharge: Stable Plan - Discharge Summary Discharge Rx Participant: No New Discharge Prescriptions: No Action RX: Ciprofloxacin HCl 500 mg PO BID 7 Days #14 tablet Discharge Medication List RX: Ciprofloxacin HCl 500 mg PO BID 7 Days #14 tablet 07/21/22 [Rx] Follow up Appointment(s)/Referral(s): None,Stated [Primary Care Provider] - 1-2 days Wan Yanez MD [STAFF PHYSICIAN] - 2 Weeks Discharge Disposition: HOME SELF-CARE
== END 2024-01-03 13:37 | disposition home or self-care (01) ==
LOC: EC 23:28 → 4FBP 01-03 02:29
PROVIDERS: ADMIT Obstetrics & Gynecology; ATTEND Obstetrics & Gynecology
DX: N93.9 Abnormal uterine and vaginal bleeding, unspecified (principal); F32.A Depression, unspecified; F41.9 Anxiety disorder, unspecified; F17.290 Nicotine dependence, other tobacco product, uncomplicated; Z97.5 Presence of (intrauterine) contraceptive device; Z88.5 Allergy status to narcotic agent
CPT/HCPCS: 96361 ×2; 96374; 99285; 36415; 86900; 86901; 80053; 85025 ×2; 85610; 85730; 86850; 84702; 93975; 76856; 74177; G0378; J2405; Q9967

== ENCOUNTER → 2024-10-22 | Outpatient (CLI) | payer OTHER ==
--- NOTE | 2024-10-23 10:10 | CA ---
Transthoracic Echo Report Name: Sherine Mcclure Age: 33 Gender: F : 1990 Exam Date: 10/22/2024 16:22 Exam Location: [facility] Ht (in): 61 Wt (lb): 130 Ordering Physician: Christopher Martínez MD Attending/Referring Phys: Kristy Car PAC [employer] Machine Operator Mabel Ramos RDCS Procedure CPT: Indications: R03.0 ELEVATED BP READING WO DX OF HTN Cardiac Hx: Technical Quality: Good Contrast 1: Total Dose (mL): Contrast 2: Total Dose (mL): MEASUREMENTS (Male / Female) Normal Values 2D ECHO LV Diastolic Diameter PLAX 4.6 cm 4.2 - 5.9 / 3.9 - 5.3 cm LV Systolic Diameter PLAX 3.2 cm IVS Diastolic Thickness 0.8 cm 0.6 - 1.0 / 0.6 - 0.9 cm LVPW Diastolic Thickness 0.9 cm 0.6 - 1.0 / 0.6 - 0.9 cm LV Relative Wall Thickness 0.4 RV Internal Dim ED PLAX 3.0 cm LA Systolic Diameter LX 2.7 cm 3.0 - 4.0 / 2.7 - 3.8 cm LV Diastolic Volume MOD BP 100.4 cm??? 67 - 155 / 56 - 104 cm??? LV Systolic Volume MOD BP 36.2 cm??? 22 - 58 / 19 - 49 cm??? LV Ejection Fraction MOD BP 63.9 % >= 55 % LV Cardiac Index MOD BP 3478.6 cm???/min???m??? LV Diastolic Volume MOD 4C 95.5 cm??? LV Systolic Volume MOD 4C 41.4 cm??? LV Ejection Fraction MOD 4C 56.6 % LV Cardiac Index MOD 4C 2931.5 cm???/min???m??? LV Diastolic Length 4C 7.9 cm LV Systolic Length 4C 6.2 cm LV Diastolic Volume MOD 2C 99.0 cm??? LV Systolic Volume MOD 2C 32.1 cm??? LV Ejection Fraction MOD 2C 67.6 % LV Cardiac Index MOD 2C 3628.1 cm???/min???m??? LV Diastolic Length 2C 8.5 cm LV Systolic Length 2C 6.1 cm LA Volume 51.9 cm??? 18 - 58 / 22 - 52 cm??? LA Volume Index 32.4 cm???/m??? 16 - 28 cm???/m??? M-MODE Aortic Root Diameter MM 3.0 cm AV Cusp Separation MM 2.2 cm DOPPLER AV Peak Velocity 172.5 cm/s AV Peak Gradient 11.9 mmHg FINDINGS Left Ventricle Left ventricular ejection fraction is estimated at 55-60 %. Left ventricular cavity size normal. Left ventricular wall thickness normal. Normal left ventricular wall motion. Right Ventricle Normal right ventricular size. Unable to estimate the right ventricular systolic pressure. Right Atrium Normal right atrial size. No right atrial thrombus or mass seen. Left Atrium Mildly increased left atrial volume. No left atrial thrombus or mass present. Mitral Valve Structurally normal mitral valve. No evidence for mitral valve prolapse. No mitral stenosis. Trace mitral regurgitation. Aortic Valve Trileaflet aortic valve. No aortic valve stenosis or regurgitation. Tricuspid Valve Structurally normal tricuspid valve. No tricuspid stenosis, regurgitation or prolapse. Pulmonic Valve Structurally normal pulmonic valve. No pulmonic regurgitation. Pericardium No pericardial effusion. Aorta Normal size aortic root and proximal ascending aorta. CONCLUSIONS Normal LV size and systolic function. No significant abnormality on the Doppler exam. No pericardial effusion Previewed by: Dr. Niles Forbes MD (Electronically Signed) Final Date: 23 Oct 2024 10:09
== END | disposition home or self-care (01) ==
LOC: RADECHMAIN 16:18
PROVIDERS: ATTEND Family Medicine
DX: R03.0 Elevated blood-pressure reading, without diagnosis of hypertension (principal)
CPT/HCPCS: 93306